=== PATIENT | male | born 1965 | race Caucasian/White ===

== ENCOUNTER 2019-04-10 16:07 | Inpatient (IN) | payer MEDICAID, SELFPAY ==
[2019-04-10 16:13] VITALS: BP 131/90; PULSE 108; RESP 16; TEMP 36.6; O2SAT 98; BMI 27.8
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
[2019-04-10 17:17] LABS: Basophils % 0.4 %; Eosinophils # 0.1 10^3/uL (0.0-0.8); Eosinophils % 0.7 %; Hematocrit 40.2 % (42.0-52.0); Hemoglobin 13.6 g/dL (11.7-16.6); Lymphocytes # 1.4 10^3/uL (0.8-4.8); Lymphocytes % 13.7 %; Mean Corpuscular HGB Conc 33.8 g/dL (30.0-36.0); Mean Corpuscular Hemoglobin 29.4 pg (28.0-34.0); Mean Platelet Volume 11.4 fL (7.4-10.4); Monocytes # 0.7 10^3/uL (0.2-0.9); Monocytes % 6.8 %; Neutrophils % 78.2 %; Nucleated Red Blood Cells % 0 %; Platelet Count 144 10^3/cmm (130-400); Red Blood Count 4.62 10^6/uL (4.1-5.3); Red Cell Distribution Width 13.3 % (12.1-15.1); White Blood Count 10.2 10^3/uL (4.0-10.0)
[2019-04-10 17:40] LABS: Alanine Aminotransferase 37 U/L (0-41); Albumin Level 4.3 g/dL (3.5-5.2); Alkaline Phosphatase 89 IU/L (40-130); Aspartate Amino Transferase 31 U/L (0-40); Blood Urea Nitrogen 13 mg/dL (6-20); Calcium 9.9 mg/dL (8.5-10.5); Carbon Dioxide 23 mmol/L (22-29); Chloride 100 mmol/L (98-107); Globulin 3.3 g/dL (1.3-4.6); Glomerular Filtration Rate 57.7 mL/min (90-130); Glucose 93 mg/dL (65-115); Sodium 136 mmol/L (136-145); Thyroid Stimulating Hormone 1.29 uIU/mL (0.27-4.20); Total Bilirubin 0.8 mg/dL (0.15-1.2); Total Protein 7.6 g/dL (6.6-8.7)
--- NOTE | 2019-04-10 17:43 | PC.PHAR ---
PT STATES HES BEEN OUT OF HIS MEDS BUT HE WAS TAKING VALIUM 5MG,NORCO 7.5/325MG,OXYCODONE 10MG. DR SON OFFICE STATES THEY LAST WROTE RX FOR NORCO 11/16/2018-OXYCODONE 10MG ON 12/06/2018.
[2019-04-10 17:46] LABS: Acetaminophen < 5.0 ug/mL (10-30); Alcohol Level < 10 mg/dL (0-10); Salicylate < 0.3 mg/dL (3-10)
[2019-04-10 17:58] LABS: Add Urine Microscopic? YES; Bilirubin Urine Neg (NEGATIVE); Blood Urine 3+ (Negative); Glucose Urine UA Norm (Normal); Ketones Urine Negative (Negative); Leukocyte Esterase Urine Negative (Negative); Nitrate Urine Negative (Negative); Protein Urine Neg (Negative); Specific Gravity, Urine 1.015 (1.005-1.030); Urine Appearance Clear (CLEAR); Urine Color Yellow (Yellow); Urobilinogen Urine 1 mg/dL (Negative); pH Urine 6 (5-7)
[2019-04-10 18:07] LABS: RBC Urine 40-50 /hpf (0-2); Squamous Epithelial Cell Urine 0-4 (0-5)
[2019-04-10 18:08] LABS: Add Urine Culture? Yes; Bacteria Urine 1+; Hyaline Casts Urine 0-4; Mucus Urine TRACE; Sperm Urine 1+
[2019-04-10 18:13] LABS: Barbiturates Screen Urine Negative (Negative); Benzodiazepines Screen Urine Negative (Negative); Cocaine Screen Urine Negative (Negative); Opiate Screen Urine Negative (Negative); PCP Screen Urine Negative (Negative); THC Screen Urine Positive (Negative)
[2019-04-10 18:15] LABS: Amphetamines Screen Urine Positive (Negative)
[2019-04-10 22:19] VITALS: PULSE 86; O2SAT 94
[2019-04-10 23:32] VITALS: RESP 18
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
[2019-04-11 06:00] VITALS: RESP 15
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
[2019-04-11 14:00] VITALS: BP 96/66; PULSE 88; RESP 20; O2SAT 98
--- NOTE | 2019-04-11 20:30 | PC.NURSE ---
Pt. sister brought $8.00 and gave to patient to use in soda machine.
[2019-04-11 22:00] VITALS: BP 114/80; PULSE 81; RESP 18; TEMP 36.6; O2SAT 99
[2019-04-12 06:00] VITALS: RESP 16
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
[2019-04-12 13:00] VITALS: BP 115/74; PULSE 84; RESP 18; TEMP 36.9; O2SAT 98
[2019-04-12] MEDS: ARIPiprazole 10 mg Tablet PO (16:26)
[2019-04-12 20:30] VITALS: BP 111/73; PULSE 84; RESP 17; TEMP 36.7; O2SAT 99
[2019-04-13 06:00] VITALS: BP 108/79; PULSE 64; RESP 18; TEMP 36.6; O2SAT 100
[2019-04-13] MEDS: ARIPiprazole 10 mg Tablet PO (09:45)
[2019-04-13 14:00] VITALS: BP 109/73; PULSE 81; RESP 18; TEMP 36.6; O2SAT 100
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
[2019-04-13 16:51] VITALS: BP 109/73; PULSE 81; RESP 18; TEMP 36.6; O2SAT 100
== END 2019-04-13 16:59 | disposition home or self-care (01) | DRG 885 ==
LOC: ER 17:01 → NP 20:24
PROVIDERS: Admitting Provider Psychiatry & Neurology Psychiatry; Emergency Provider Family Medicine; Family Provider Family Medicine; Visit Provider Psychiatry & Neurology Psychiatry
DX: F23 Brief psychotic disorder (principal); R45.851 Suicidal ideations; F17.210 Nicotine dependence, cigarettes, uncomplicated
CPT/HCPCS: 12345; 36415; 80053; 80306; 80307; 81001; 84443; 85025; 87086; 99284

== ENCOUNTER 2019-04-10 16:07 | Emergency (ER) | payer MEDICAID, SELFPAY | END 2019-04-10 22:22 | disposition admitted as inpatient to this hospital (09) | LOC: ER 05-07 16:49 | PROVIDERS: Emergency Provider Family Medicine; Family Provider Family Medicine | DX: F19.959 Other psychoactive substance use, unspecified with psychoactive substance-induced psychotic disorder, unspecified (principal); F23 Brief psychotic disorder; F15.10 Other stimulant abuse, uncomplicated; F12.10 Cannabis abuse, uncomplicated; F60.2 Antisocial personality disorder; F17.200 Nicotine dependence, unspecified, uncomplicated | CPT/HCPCS: 36415; 80053; 80306; 80307; 81001; 84443; 85025; 87086; 96372; 99284; 99285 ==

== ENCOUNTER → 2019-05-07 12:02 | Outpatient (BNVA) | payer MEDICAID, SELFPAY | PROVIDERS: Family Provider Family Medicine; Visit Provider Podiatrist Foot & Ankle Surgery | DX: M79.671 Pain in right foot (principal) | CPT/HCPCS: 73630 ==

== ENCOUNTER 2019-08-05 18:02 | Emergency (ER) | payer MEDICAID, SELFPAY ==
[2019-08-05 18:03] VITALS: BMI 26.6
[2019-08-05 18:08] VITALS: BP 133/92; PULSE 70; RESP 18; TEMP 36.4; O2SAT 97
--- NOTE | 2019-08-05 19:01 | PC.NURSE ---
patient left AMA but did not sign AMA form
--- NOTE | 2019-08-05 19:02 | PC.NURSE ---
informed dr. berry of patient leaving A
--- NOTE | 2019-08-05 20:25 | ED_ITS ---
HPI - Headache General: Chief Complaint: Headache Stated Complaint: HEADACHE Time Seen by Provider: 08/05/19 18:04 History of Present Illness: HPI Narrative: 53-year-old male presents with a headache for the last 3 to 4 days. He is localizing his headache to the left parietal and frontal regions. He says it hurts around his eye as well. He says his vision was blurry yesterday but not today. He is light sensitive. He took ibuprofen which seemed to help yesterday, but not as much today. He denies any fever. He says that he vomited yesterday. He denies any rash. Associated symptoms: Reports nausea and vomiting; Deny chest pain, confusion, fever(s) or rash Review of Systems Const: Denies: fever(s) or chills Eyes: Reports: blurry vision ENMT: Denies: swelling of lips/tongue, bleeding gums, epistaxis, post nasal drip or sinus pain Card: Denies: chest pain, palpitations or irregular heart rhythm Resp: Denies: dyspnea, productive cough, non-productive cough or wheezing GI: Reports: nausea and vomiting; Denies: abdominal pain : Denies: difficulty urinating, dysuria or hematuria Musc: Reports: neck pain; Denies: back pain Skin/Breast: Denies: rash, pruritus or erythema Neuro: Reports: headache(s) and dizziness; Denies: confusion or seizure-like activity Psych: Denies: anxiety PFSH ED PFSH: Family History (Updated 05/07/19 @ 12:17 by Maria Teresa Mejia LPN) Other Diabetes Denies family history of Cancer Social History (Updated 05/07/19 @ 12:18 by Maria Teresa Mejia LPN) Smoking and tobacco status: current every day smoker Alcohol intake: never Household members: other Details: Lives in his car, staying with a girl right now Current occupational status: unemployed Physical Exam Const: GENERAL APPEARANCE: well developed ORIENTATION/CONSCIOUSNESS: Yes oriented to person, Yes oriented to place and Yes oriented to time HENMT: COMMON NORMALS: normocephalic, external ears normal and Normal external nose present HEAD & SCALP: normocephalic; no scalp tenderness FACE & SINUS: normal facial exam NOSE: Normal external nose present and No nasal discharge present EXTERNAL EAR: Yes external ears normal MOUTH: tongue normal Eye: COMMON NORMALS: Equal, round and reactive pupils present, EOMs intact bilaterally and conjunctivae normal EYELID: eyelids normal CONJUNCTIVA: Yes conjunctivae normal PUPIL: Yes Equal, round and reactive pupils present Neck/C-Spine: COMMON NORMALS: full ROM GENERAL: No tracheal deviation CERVICAL SPINE: Yes normal cervical lordosis and No Cervical spine tenderness Chest: COMMONS NORMALS: normal inspection of the chest CHEST: No tenderness Resp: COMMON NORMALS: clear to auscultation bilaterally EFFORT & INSPECTION: No tachypneic, No respiratory distress, No retractions, No uses accessory muscles and No tracheal deviation AUSCULTATION: clear to auscultation bilaterally, no rhonchi, no wheezes and lung sounds not diminished Cardio: COMMON NORMALS: regular rate and regular rhythm RATE: regular rate RHYTHM: regular rhythm HEART SOUNDS: no murmurs PERIPHERAL PULSES: radial pulses present GI: INSPECTION: No abdominal distension AUSCULTATION: No Hyperactive bowel sounds present and No Hypoactive bowel sounds present PALPATION: No Guarding due to palpation present (GI) and No Rigid due to palpation PERCUSSION: no dullness to percussion and no tympanic to percussion : COMMON NORMALS: Yes no CVA tenderness BLADDER/KIDNEY EXAM: Yes no CVA tenderness Back/Pelvis: COMMON NORMALS: no CVA tenderness Neuro: SENSORIUM/ORIENTATION: Yes oriented to person, Yes oriented to place and Yes oriented to time Psych: COMMON NORMALS: mental status grossly normal Skin: COMMON NORMALS: no rashes or lesions noted GENERAL SKIN EXAM: no rashes or lesions noted Course Vital Signs: Vital signs: Vital Signs Temperature 97.5 F L 08/05/19 18:08 Pulse Rate 70 08/05/19 18:08 Respiratory Rate 18 08/05/19 18:08 Blood Pressure 133/92 08/05/19 18:08 Pulse Oximetry 97 08/05/19 18:08 MDM - Headache MDM Narrative: Medical decision making narrative: 53-year-old male without significant history of headaches. He does have a history of polysubstance abuse, but has been off of drugs for quite some time he says. He presents with a left-sided frontotemporal headache. No pain with extraocular movements. No fever. No neck stiffness. Labs and CT had been ordered, as well as a migraine type cocktail. The patient then decided he wanted to leave, and left before the start of his treatment. Discharge Plan Discharge Patient Disposition: Left Against Medical Advice Clinical Impression: Headache Qualifiers: Headache type: unspecified Headache chronicity pattern: acute headache Intractability: intractable Qualified Code(s): R51 - Headache Prescriptions: No Action aripiprazole 10 mg Tablet 10 mg PO DAILY 30 Days Qty: 30 RF: 1 Referrals: Elizabeth De Santiago DO [Primary Care Provider] - Discharge Date/Time: 08/05/19 19:03 Coding Level of Care Code ED Legal Consultant for Chg Fwd Exam Comprehensive
== END 2019-08-05 19:03 | disposition left against medical advice (07) ==
LOC: ER 18:22
PROVIDERS: Emergency Provider Emergency Medicine; PCP Family Medicine
DX: R51 Headache (principal); Z53.21 Procedure and treatment not carried out due to patient leaving prior to being seen by health care provider; F17.210 Nicotine dependence, cigarettes, uncomplicated
CPT/HCPCS: 12345; 99281

== ENCOUNTER 2019-08-12 23:25 | Emergency (ER) | payer MEDICAID, SELFPAY ==
[2019-08-12 23:37] VITALS: BP 118/83; RESP 18; TEMP 36.8; O2SAT 98; BMI 25.8
[2019-08-13 00:24] LABS: Basophils # 0.1 10^3/uL (0.0-0.1); Basophils % 1.1 %; Eosinophils # 0.3 10^3/uL (0.0-0.8); Eosinophils % 4.9 %; Hematocrit 41.5 % (42.0-52.0); Lymphocytes # 1.8 10^3/uL (0.8-4.8); Lymphocytes % 32.1 %; Mean Corpuscular HGB Conc 33.7 g/dL (30.0-36.0); Mean Corpuscular Hemoglobin 30.9 pg (28.0-34.0); Mean Corpuscular Volume 91.6 fL (80-94); Mean Platelet Volume 12.3 fL (7.4-10.4); Monocytes # 0.5 10^3/uL (0.2-0.9); Monocytes % 8.4 %; Neutrophils # 2.9 10^3/uL (1.8-7.7); Neutrophils % 53.3 %; Nucleated Red Blood Cells % 0 %; Platelet Count 175 10^3/cmm (130-400); Red Blood Count 4.53 10^6/uL (4.1-5.3); Red Cell Distribution Width 13.7 % (12.1-15.1); White Blood Count 5.5 10^3/uL (4.0-10.0)
[2019-08-13 00:44] LABS: Alanine Aminotransferase 34 U/L (0-41); Albumin Level 4.2 g/dL (3.5-5.2); Alkaline Phosphatase 71 IU/L (40-130); Anion Gap 15.4 (5-19); Aspartate Amino Transferase 31 U/L (0-40); Blood Urea Nitrogen 14 mg/dL (6-20); Calcium 9.2 mg/dL (8.5-10.5); Carbon Dioxide 24 mmol/L (22-29); Chloride 104 mmol/L (98-107); Globulin 3.4 g/dL (1.3-4.6); Glomerular Filtration Rate 69.8 mL/min (90-130); Glucose 155 mg/dL (65-115); Osmolality Calculated 289 mOsm/kg (285-295); Potassium 3.4 mmol/L (3.5-5.1); Sodium 140 mmol/L (136-145); Total Bilirubin 0.4 mg/dL (0.15-1.2); Total Protein 7.6 g/dL (6.6-8.7)
[2019-08-13 00:56] LABS: Acetaminophen < 5.0 ug/mL (10-30); Alcohol Level < 10 mg/dL (0-10); Salicylate < 0.3 mg/dL (3-10)
--- NOTE | 2019-08-13 00:57 | ED_ITS ---
Documented by User: Brent Workman DO 08/13/19 18:40 HPI - Psych General: Chief Complaint: Psychiatric Symptoms Stated Complaint: mhe Time Seen by Provider: 08/12/19 23:41 History of Present Illness: MD complaint: suicidal ideation Onset (ago): hour(s) Duration: constant History of same: Yes Relieving factors: none Exacerbating factors: drug use Context: recent drug abuse Associated psychiatric symptoms: depression, suicidal ideation and homicidal ideation Associated symptoms: Deny auditory hallucinations or visual hallucinations Review of Systems Const: Denies: fever(s) or chills Eyes: Denies: change in vision ENMT: Denies: odynophagia or swelling of lips/tongue Card: Denies: chest pain, palpitations or swelling of feet/ankles Resp: Denies: dyspnea, productive cough, non-productive cough or wheezing GI: Denies: abdominal pain, nausea or vomiting : Denies: difficulty urinating or hematuria Musc: Reports: neck pain; Denies: back pain, joint redness or joint warmth Skin/Breast: Denies: pruritus or erythema Neuro: Reports: headache(s); Denies: dizziness or vertigo Psych: Denies: visual hallucinations or auditory hallucinations PFSH ED PFSH: Family History Other Diabetes Denies family history of Cancer Social History Smoking and tobacco status: current every day smoker Alcohol intake: never Household members: other Details: Lives in his car, staying with a girl right now Current occupational status: unemployed Physical Exam Const: GENERAL APPEARANCE: well developed ORIENTATION/CONSCIOUSNESS: Yes oriented to person, Yes oriented to place and Yes oriented to time HENMT: COMMON NORMALS: normocephalic, external ears normal and Normal external nose present HEAD & SCALP: normocephalic; no scalp tenderness FACE & SINUS: normal facial exam NOSE: Normal external nose present and No nasal discharge present EXTERNAL EAR: Yes external ears normal MOUTH: tongue normal Eye: COMMON NORMALS: Equal, round and reactive pupils present, EOMs intact bilaterally and conjunctivae normal EYELID: eyelids normal CONJUNCTIVA: Yes conjunctivae normal PUPIL: Yes Equal, round and reactive pupils present Neck/C-Spine: GENERAL: No tracheal deviation CERVICAL SPINE: Yes normal cervical lordosis and No Cervical spine tenderness Chest: COMMONS NORMALS: normal inspection of the chest CHEST: No tenderness Resp: COMMON NORMALS: clear to auscultation bilaterally EFFORT & INSPECTION: No tachypneic, No respiratory distress, No retractions, No uses accessory muscles and No tracheal deviation AUSCULTATION: clear to auscultati on bilaterally, no rhonchi, no wheezes and lung sounds not diminished Cardio: COMMON NORMALS: regular rate and regular rhythm RATE: regular rate RHYTHM: regular rhythm HEART SOUNDS: no murmurs PERIPHERAL PULSES: radial pulses present GI: INSPECTION: No abdominal distension AUSCULTATION: No Hyperactive bowel sounds present and No Hypoactive bowel sounds present PALPATION: No Guarding due to palpation present (GI) and No Rigid due to palpation PERCUSSION: no dullness to percussion and no tympanic to percussion Neuro: SENSORIUM/ORIENTATION: Yes oriented to person, Yes oriented to place and Yes oriented to time Psych: COMMON NORMALS: speech normal ATTITUDE: Yes calm SPEECH: Yes normal speech THOUGHT PROCESS: disorganized THOUGHT CONTENT: Yes Suicidality present, Yes Homicidality present and Yes Phobia(s) present ATTENTION/CONCENTRATION: Yes attention grossly intact MEMORY/COGNITION: Yes memory grossly intact INSIGHT: Limited insight present (Psych) JUDGEMENT: Limited judgement present (Psych) Skin: COMMON NORMALS: no rashes or lesions noted GENERAL SKIN EXAM: no rashes or lesions noted MDM - Psych MDM Narrative: Medical decision making narrative: 54-year-old male with a history of psychiatric problems and substance abuse. He presents after making threats to multiple people including 2 police officers. He then threatened to harm himself he has had prior attempts. He is afraid that his sister, who he claims is taken all of his medicine, is out to get him, changing his medical records, gang stalking him . He is medically stable. We are awaiting to see if we have a bed at our facility. Police officers have written an affidavit, although the patient states he is willing to come in. Spoke with psychiatry. There are no male beds available at our facility. Were going to attempt to call other facilities to find this patient in bed. Again he remains willing to come in. 27 facilities have been called. Information is been faxed to 2. He remains medically stable. He is resting comfortably, and has been quite cooperative. He will be checked out to Dr. Mcknight at shift change. Lab Data: Labs: Lab Results 08/13/19 08/13/19 08/13/19 Range/Units 00:20 00:20 00:20 WBC 5.5 (4.0-10.0) 10^3/ uL RBC 4.53 (4.1-5.3) 10^6/u L Hgb 14.0 (11.7-16.6) g/dL Hct 41.5 L (42.0-52.0) % MCV 91.6 (80-94) fL MCH 30.9 (28.0-34.0) pg MCHC 33.7 (30.0-36.0) g/dL RDW 13.7 (12.1-15.1) % Plt Count 175 (130-400) 10^3/c mm MPV 12.3 H (7.4-10.4) fL Neut % (Auto) 53.3 % Lymph % (Auto) 32.1 % [place] % (Auto) 8.4 % Eos % (Auto) 4.9 % Baso % (Auto) 1.1 % Neut # (Auto) 2.9 (1.8-7.7) 10^3/u L Lymph # (Auto) 1.8 (0.8-4.8) 10^3/u L [place] # (Auto) 0.5 (0.2-0.9) 10^3/u L Eos # (Auto) 0.3 (0.0-0.8) 10^3/u L Baso # (Auto) 0.1 (0.0-0.1) 10^3/u L Nucleated RBC % (a uto) 0 % Nucleated RBCs # 0.0 /100WBC Sodium 140 (136-145) mmol/L Potassium 3.4 L (3.5-5.1) mmol/L Chloride 104 (98-107) mmol/L Carbon Dioxide 24 (22-29) mmol/L Anion Gap 15.4 (5-19) BUN 14 (6-20) mg/dL Creatinine 1.1 (0.7-1.2) mg/dL GFR Calculation 69.8 L (90-130) mL/min Glucose 155 H (65-115) mg/dL Calculated Osmolal ity 289 (285-295) mOsm/k g Calcium 9.2 (8.5-10.5) mg/dL Total Bilirubin 0.4 (0.15-1.2) mg/dL AST 31 (0-40) U/L ALT 34 (0-41) U/L Alkaline Phosphata se 71 (40-130) IU/L Total Protein 7.6 (6.6-8.7) g/dL Albumin 4.2 (3.5-5.2) g/dL Globulin 3.4 (1.3-4.6) g/dL TSH (0.27-4.20) uIU/ mL Urine Color (Yellow) Urine Appearance (CLEAR) Urine pH (5-7) Ur Specific Gravit y (1.005-1.030) Urine Protein (Negative) Urine Glucose (UA) (Normal) Urine Ketones (Negative) Urine Blood (Negative) Urine Nitrate (Negative) Urine Bilirubin (NEGATIVE) Urine Urobilinogen (Negative) mg/dL Ur Leukocyte Raiza ase (Negative) Salicylates < 0.3 L (3-10) mg/dL Urine Opiates Scre en (Negative) ng/mL Acetaminophen < 5.0 L (10-30) ug/mL Ur Barbiturates Sc reen (Negative) ng/mL Ur Phencyclidine S crn (Negative) ng/mL Ur Amphetamines Sc reen (Negative) ng/mL U Benzodiazepines Scrn (Negative) ng/mL [place] < 0.1 L (0.6-1.2) mmol/L Urine Cocaine Scre en (Negative) ng/mL U Marijuana (THC) Screen (Negative) ng/mL Ethyl Alcohol < 10 (0-10) mg/dL 08/13/19 08/13/19 08/13/19 Range/Units 00:20 02:01 02:01 WBC (4.0-10.0) 10^3/ uL RBC (4.1-5.3) 10^6/u L Hgb (11.7-16.6) g/dL Hct (42.0-52.0) % MCV (80-94) fL MCH (28.0-34.0) pg MCHC (30.0-36.0) g/dL RDW (12.1-15.1) % Plt Count (130-400) 10^3/c mm MPV (7.4-10.4) fL Neut % (Auto) % Lymph % (Auto) % [place] % (Auto) % Eos % (Auto) % Baso % (Auto) % Neut # (Auto) (1.8-7.7) 10^3/u L Lymph # (Auto) (0.8-4.8) 10^3/u L [place] # (Auto) (0.2-0.9) 10^3/u L Eos # (Auto) (0.0-0.8) 10^3/u L Baso # (Auto) (0.0-0.1) 10^3/u L Nucleated RBC % (a uto) % Nucleated RBCs # /100WBC Sodium (136-145) mmol/L Potassium (3.5-5.1) mmol/L Chloride (98-107) mmol/L Carbon Dioxide (22-29) mmol/L Anion Gap (5-19) BUN (6-20) mg/dL Creatinine (0.7-1.2) mg/dL GFR Calculation (90-130) mL/min Glucose (65-115) mg/dL Calculated Osmolal ity (285-295) mOsm/k g Calcium (8.5-10.5) mg/dL Total Bilirubin (0.15-1.2) mg/dL AST (0-40) U/L ALT (0-41) U/L Alkaline Phosphata se (40-130) IU/L Total Protein (6.6-8.7) g/dL Albumin (3.5-5.2) g/dL Globulin (1.3-4.6) g/dL TSH 1.39 (0.27-4.20) uIU/ mL Urine Color Yellow (Yellow) Urine Appearance Clear (CLEAR) Urine pH 5 (5-7) Ur Specific Gravit y 1.020 (1.005-1.030) Urine Protein Neg (Negative) Urine Glucose (UA) Norm (Normal) Urine Ketones Negative (Negative) Urine Blood Neg (Negative) Urine Nitrate Negative (Negative) Urine Bilirubin Neg (NEGATIVE) Urine Urobilinogen 4 H (Negative) mg/dL Ur Leukocyte Raiza ase Negative (Negative) Salicylates (3-10) mg/dL Urine Opiates Scre en Negative (Negative) ng/mL Acetaminophen (10-30) ug/mL Ur Barbiturates Sc reen Negative (Negative) ng/mL Ur Phencyclidine S crn Negative (Negative) ng/mL Ur Amphetamines Sc reen Positive H (Negative) ng/mL U Benzodiazepines Scrn Negative (Negative) ng/mL [place] (0.6-1.2) mmol/L Urine Cocaine Scre en Negative (Negative) ng/mL U Marijuana (THC) Screen Positive H (Negative) ng/mL Ethyl Alcohol (0-10) mg/dL Discharge Plan Discharge Patient Disposition: Home, Self-Care Clinical Impression: Drug-induced psychotic disorder, Methamphetamine abuse, Cannabis abuse, Antisocial personality disorder Condition: Stable Prescriptions: No Action Unable to Assess RF: 0 Discharge Orders: Discharge Order (Routine); Ordered 08/13/19 Ordered By: Dilshad Mcknight Referrals: Elizabeth De Santiago DO [Primary Care Provider] - Discharge Diet: Usual diet Discharge Activity: Resume usual activity Activity Restrictions/Additional Instructions: Recommend you follow-up with behavioral health through your primary care provider. Also recommend stopping using marijuana and methamphetamine. Discharge Date/Time: 08/13/19 10:24 Sign Out Sign Out Data: Patient Sign Out occurred on 08/13/19 at 06:27. Patient's care was discussed, and care was transferred from to Dilshad Mcknight DO. Coding Level of Care Code ED Tank Driver for Chg Fwd Exam Comprehensive Documented by User: Dilshad Mcknight DO 08/13/19 14:40 HPI - Psych General: Chief Complaint: Psychiatric Symptoms Stated Complaint: mhe Time Seen by Provider: 08/12/19 23:41 History of Present Illness: HPI Narrative: Initially seen by Dr. Workman he had been here for quite some time he been trying to make arrangements for transfer. When he had come in PD had brought him in and cussed the he had made several comments about wanting to be killed and filled out affidavits. Because he has a family member is here at [facility] did not want to be admitted here. We found 27 different places to call none of them would take him on transfer. When I went into see the patient initially he would not even discuss anything with me he simply ignored me he then became angry when he said we would admit him he demanded to be transferred he refused to comply with her wishes to change into paper scrubs staff overnight had been trying to do that but he had been confrontational they are afraid he would lead to harm to staff or himself so they let him stay on his own close for the time being and continue to monitor him one-on-one. He is threatening to physically harm and attack our staff if he is admitted to this facility. complaint: suicidal ideation Onset (ago): hour(s) Duration: constant History of same: Yes Relieving factors: none Exacerbating factors: none Context: recent alcohol abuse and recent drug abuse Associated psychiatric symptoms: suicidal ideation and homicidal ideation Associated symptoms: Reports homicidal ideation and suicidal ideation Treatments prior to arrival: placed on mental health hold If self harm: admits thoughts of self harm Review of Systems General: Reports: Other (Patient refuses to answer any questions) Psych: Reports: suicidal ideation and homicidal ideation [facility] ED PFSH: Family History Other Diabetes Denies family history of Cancer Social History Smoking and tobacco status: current every day smoker Alcohol intake: never Household members: other Details: Lives in his car, staying with a girl right now Current occupational status: unemployed Physical Exam Narrative: EXAM NARRATIVE: Patient would not allow physical exam. He made threatening remarks and was physically confrontational to the point where it was not safe for myself to examine the patient. MDM - Psych MDM Narrative: Medical decision making narrative: Care assumed from Dr. Workman at change of shift. Patient refuses to talk to me. He makes threatening comments threatens to harm the staff if he is not transferred. See Dr. Workman's note we have called multiple facilities no one is willing to take him on transfer. He did tell the police he wanted them to kill him he is not made any specific suicidal ideation here other than just the threats of violence against our staff if he is admitted. He refuses to be admitted here because he is a family member who works here and he is convinced that they are accessing his chart and changing. Contacted Dr. Kendall who Dr. Workman talk to the last night he was on-call for tele-psych at Dr. robbin is on now Dr. Kendall and agreed probably better if this patient was seen in person. Dr. siegel will be coming down shortly to see the patient in the emergency room. If the patient is not agreeable to admission here without threatening staff anticipating discharge to [facility] for suicide watch Dr. siegel has seen the patient. I completed the 96-hour paperwork based on the [place] [employer] officer statements. Dr. siegel has seen and evaluated him he does not feel he is a suicide risk he is going to release the 96-hour hold recommends that we discharge. He does not feel that psychiatric admission will help this patient. See his consultation. Lab Data: Labs: Lab Results 08/13/19 08/13/19 08/13/19 Range/Units 00:20 00:20 00:20 WBC 5.5 (4.0-10.0) 10^3/ uL RBC 4.53 (4.1-5.3) 10^6/u L Hgb 14.0 (11.7-16.6) g/dL Hct 41.5 L (42.0-52.0) % MCV 91.6 (80-94) fL MCH 30.9 (28.0-34.0) pg MCHC 33.7 (30.0-36.0) g/dL RDW 13.7 (12.1-15.1) % Plt Count 175 (130-400) 10^3/c mm MPV 12.3 H (7.4-10.4) fL Neut % (Auto) 53.3 % Lymph % (Auto) 32.1 % [place] % (Auto) 8.4 % Eos % (Auto) 4.9 % Baso % (Auto) 1.1 % Neut # (Auto) 2.9 (1.8-7.7) 10^3/u L Lymph # (Auto) 1.8 (0.8-4.8) 10^3/u L [place] # (Auto) 0.5 (0.2-0.9) 10^3/u L Eos # (Auto) 0.3 (0.0-0.8) 10^3/u L Baso # (Auto) 0.1 (0.0-0.1) 10^3/u L Nucleated RBC % (a uto) 0 % Nucleated RBCs # 0.0 /100WBC Sodium 140 (136-145) mmol/L Potassium 3.4 L (3.5-5.1) mmol/L Chloride 104 (98-107) mmol/L Carbon Dioxide 24 (22-29) mmol/L Anion Gap 15.4 (5-19) BUN 14 (6-20) mg/dL Creatinine 1.1 (0.7-1.2) mg/dL GFR Calculation 69.8 L (90-130) mL/min Glucose 155 H (65-115) mg/dL Calculated Osmolal ity 289 (285-295) mOsm/k g Calcium 9.2 (8.5-10.5) mg/dL Total Bilirubin 0.4 (0.15-1.2) mg/dL AST 31 (0-40) U/L ALT 34 (0-41) U/L Alkaline Phosphata se 71 (40-130) IU/L Total Protein 7.6 (6.6-8.7) g/dL Albumin 4.2 (3.5-5.2) g/dL Globulin 3.4 (1.3-4.6) g/dL TSH (0.27-4.20) uIU/ mL Urine Color (Yellow) Urine Appearance (CLEAR) Urine pH (5-7) Ur Specific Gravit y (1.005-1.030) Urine Protein (Negative) Urine Glucose (UA) (Normal) Urine Ketones (Negative) Urine Blood (Negative) Urine Nitrate (Negative) Urine Bilirubin (NEGATIVE) Urine Urobilinogen (Negative) mg/dL Ur Leukocyte Raiza ase (Negative) Salicylates < 0.3 L (3-10) mg/dL Urine Opiates Scre en (Negative) ng/mL Acetaminophen < 5.0 L (10-30) ug/mL Ur Barbiturates Sc reen (Negative) ng/mL Ur Phencyclidine S crn (Negative) ng/mL Ur Amphetamines Sc reen (Negative) ng/mL U Benzodiazepines Scrn (Negative) ng/mL [place] < 0.1 L (0.6-1.2) mmol/L Urine Cocaine Scre en (Negative) ng/mL U Marijuana (THC) Screen (Negative) ng/mL Ethyl Alcohol < 10 (0-10) mg/dL 08/13/19 08/13/19 08/13/19 Range/Units 00:20 02:01 02:01 WBC (4.0-10.0) 10^3/ uL RBC (4.1-5.3) 10^6/u L Hgb (11.7-16.6) g/dL Hct (42.0-52.0) % MCV (80-94) fL MCH (28.0-34.0) pg MCHC (30.0-36.0) g/dL RDW (12.1-15.1) % Plt Count (130-400) 10^3/c mm MPV (7.4-10.4) fL Neut % (Auto) % Lymph % (Auto) % [place] % (Auto) % Eos % (Auto) % Baso % (Auto) % Neut # (Auto) (1.8-7.7) 10^3/u L Lymph # (Auto) (0.8-4.8) 10^3/u L [place] # (Auto) (0.2-0.9) 10^3/u L Eos # (Auto) (0.0-0.8) 10^3/u L Baso # (Auto) (0.0-0.1) 10^3/u L Nucleated RBC % (a uto) % Nucleated RBCs # /100WBC Sodium (136-145) mmol/L Potassium (3.5-5.1) mmol/L Chloride (98-107) mmol/L Carbon Dioxide (22-29) mmol/L Anion Gap (5-19) BUN (6-20) mg/dL Creatinine (0.7-1.2) mg/dL GFR Calculation (90-130) mL/min Glucose (65-115) mg/dL Calculated Osmolal ity (285-295) mOsm/k g Calcium (8.5-10.5) mg/dL Total Bilirubin (0.15-1.2) mg/dL AST (0-40) U/L ALT (0-41) U/L Alkaline Phosphata se (40-130) IU/L Total Protein (6.6-8.7) g/dL Albumin (3.5-5.2) g/dL Globulin (1.3-4.6) g/dL TSH 1.39 (0.27-4.20) uIU/ mL Urine Color Yellow (Yellow) Urine Appearance Clear (CLEAR) Urine pH 5 (5-7) Ur Specific Gravit y 1.020 (1.005-1.030) Urine Protein Neg (Negative) Urine Glucose (UA) Norm (Normal) Urine Ketones Negative (Negative) Urine Blood Neg (Negative) Urine Nitrate Negative (Negative) Urine Bilirubin Neg (NEGATIVE) Urine Urobilinogen 4 H (Negative) mg/dL Ur Leukocyte Raiza ase Negative (Negative) Salicylates (3-10) mg/dL Urine Opiates Scre en Negative (Negative) ng/mL Acetaminophen (10-30) ug/mL Ur Barbiturates Sc reen Negative (Negative) ng/mL Ur Phencyclidine S crn Negative (Negative) ng/mL Ur Amphetamines Sc reen Positive H (Negative) ng/mL U Benzodiazepines Scrn Negative (Negative) ng/mL [place] (0.6-1.2) mmol/L Urine Cocaine Scre en Negative (Negative) ng/mL U Marijuana (THC) Screen Positive H (Negative) ng/mL Ethyl Alcohol (0-10) mg/dL Discharge Plan Discharge Patient Disposition: Home, Self-Care Clinical Impression: Drug-induced psychotic disorder, Methamphetamine abuse, Cannabis abuse, Antisocial personality disorder Condition: Stable Prescriptions: No Action Unable to Assess RF: 0 Discharge Orders: Discharge Order (Routine); Ordered 08/13/19 Ordered By: Dilshad Mcknight Referrals: Elizabeth De Santiago DO [Primary Care Provider] - Discharge Diet: Usual diet Discharge Activity: Resume usual activity Activity Restrictions/Additional Instructions: Recommend you follow-up with behavioral health through your primary care provider. Also recommend stopping using marijuana and methamphetamine. Discharge Date/Time: 08/13/19 10:24 Sign Out Sign Out Data: Patient Sign Out occurred on 08/13/19 at 06:27. Patient's care was discussed, and care was transferred from to Dilshad Mcknight DO. Coding Level of Care Code ED Tank Driver for Chg Fwd Exam Comprehensive
--- NOTE | 2019-08-13 01:11 | PC.NURSE ---
Patient resting in bed. Doctor in room. 1:1 sitter with patient.
[2019-08-13 01:12] LABS: Lithium < 0.1 mmol/L (0.6-1.2)
[2019-08-13 02:13] LABS: Add Urine Microscopic? NO
[2019-08-13 02:21] LABS: Bilirubin Urine Neg (NEGATIVE); Blood Urine Neg (Negative); Glucose Urine UA Norm (Normal); Ketones Urine Negative (Negative); Leukocyte Esterase Urine Negative (Negative); Nitrate Urine Negative (Negative); Protein Urine Neg (Negative); Urine Appearance Clear (CLEAR); Urine Color Yellow (Yellow); Urobilinogen Urine 4 mg/dL (Negative); pH Urine 5 (5-7)
[2019-08-13 02:30] LABS: Amphetamines Screen Urine Positive (Negative); Barbiturates Screen Urine Negative (Negative); Benzodiazepines Screen Urine Negative (Negative); Cocaine Screen Urine Negative (Negative); Opiate Screen Urine Negative (Negative); PCP Screen Urine Negative (Negative); THC Screen Urine Positive (Negative)
--- NOTE | 2019-08-13 02:35 | PC.NURSE ---
Patient sleeping. 1:1 Sitter at bedside.
--- NOTE | 2019-08-13 02:50 | ECG_ITS ---
[facility] Test Date: 2019-08-13 Pat Name: Mt Hawkins Department: Room: Gender: Male Ship'S Engineer: Bobo : 1965 Requested By: Brent Georges Order Number: [id number] Jeremiah MD: Nell Mcgregor M.D. Measurements Intervals [place] Rate: 59 P: 63 RI: 142 QRS: 56 QRSD: 101 T: 56 QT: 420 QTc: 418 Interpretive Statements SINUS BRADYCARDIA Compared to ECG 06/08/2018 15:08:20 Sinus rhythm no longer present Myocardial infarct finding no longer present Electronically Signed On 08-13-2019 21:39:18 CDT by Nell Mcgregor M.D. [email or web address]
--- NOTE | 2019-08-13 02:58 | PC.NURSE ---
Patient sleeping. 1:1 sitter at bedside.
[2019-08-13 03:16] VITALS: BP 117/72; PULSE 55; RESP 18; O2SAT 98
[2019-08-13 03:44] LABS: Thyroid Stimulating Hormone 1.39 uIU/mL (0.27-4.20)
[2019-08-13 06:24] VITALS: BP 125/80; PULSE 56; RESP 16; O2SAT 98
--- NOTE | 2019-08-13 06:28 | PC.NURSE ---
Pt. resting with eyes closed. Breathing even, non labored. 1:1 sitter at bedside. Awaiting acceptance to psychiatric facility
[2019-08-13 06:30] VITALS: BP 127/89; PULSE 55; RESP 18; O2SAT 98
[2019-08-13 07:00] VITALS: BP 134/85; PULSE 57; RESP 18; O2SAT 98
--- NOTE | 2019-08-13 07:00 | PC.NURSE ---
patient resting in bed. breathing evenly, eyes closed. patient hooked up to bedside monitor. 1:1 sitter at bedside. waiting to hear back for transfer to psych facility. room cleared of all hazardous materials. patient belongings placed at nurses station. will continue to monitor.
[2019-08-13 07:36] VITALS: BP 137/63; PULSE 59; RESP 17; O2SAT 100
--- NOTE | 2019-08-13 07:43 | PC.NURSE ---
attempted to put patient in paper scrubs. patient refusing to change out of clothes. cussing and yelling at nurses I am not changing clothes until i get transferred to another facility. charge nurse notified.
--- NOTE | 2019-08-13 08:21 | PC.NURSE ---
per ED physician, patient is to wear paper scrubs. nurse and charge nurse attempted to change patent into scrubs. patient becoming increasingly aggravated. jumped put of bed and pulling up sleeves. stating that he is not changing clothes until he is transferred to another facility. security called to bedside for patient and staff safety. will continue to monitor. 1:1 sitter at bedside.
--- NOTE | 2019-08-13 09:50 | PC.NURSE ---
psychiatrist at bedside talking with patient. 1:1 sitter at bedside. patient refusing to wear pulse ox and bp cuff at this time. will continue to monitor.
[2019-08-13] MEDS: ibuprofen 200 mg Tablet PO (10:03)
--- NOTE | 2019-08-13 10:19 | PC.NURSE ---
patient refused to let nurse take DC vital signs. patient unhappy about dc and not being transferred to [facility]. shared services and outsourcing manager, Vilma calling rides to help assist with ride to half-way in [place].
== END 2019-08-13 10:24 | disposition home or self-care (01) ==
PROVIDERS: Emergency Medicine; Emergency Provider Family Medicine; PCP Family Medicine
DX: F15.259 Other stimulant dependence with stimulant-induced psychotic disorder, unspecified (principal); F12.10 Cannabis abuse, uncomplicated; F60.2 Antisocial personality disorder; F17.210 Nicotine dependence, cigarettes, uncomplicated
CPT/HCPCS: 12345; 80053; 80178; 80306; 80307; 81003; 84443; 85025; 93005; 99284

== ENCOUNTER 2019-08-18 01:39 | Emergency (ER) | payer MEDICAID, SELFPAY | END 2019-08-18 03:48 | disposition admitted as inpatient to this hospital (09) | LOC: ER 08-20 17:01 | PROVIDERS: Emergency Provider Emergency Medicine; PCP Family Medicine | DX: R45.851 Suicidal ideations (principal); F17.210 Nicotine dependence, cigarettes, uncomplicated | CPT/HCPCS: 36415; 80053; 80306; 80307; 81001; 81003; 85025; 99284; 99285 ==

== ENCOUNTER 2019-08-18 01:39 | Inpatient (IN) | payer MEDICAID, SELFPAY ==
[2019-08-18 01:42] VITALS: BP 121/77; PULSE 83; RESP 16; TEMP 36.3; O2SAT 98; BMI 26.6
[2019-08-18 02:10] LABS: Basophils # 0.1 10^3/uL (0.0-0.1); Basophils % 0.9 %; Eosinophils # 0.2 10^3/uL (0.0-0.8); Eosinophils % 1.9 %; Hematocrit 41.1 % (42.0-52.0); Hemoglobin 13.5 g/dL (11.7-16.6); Lymphocytes # 2.5 10^3/uL (0.8-4.8); Mean Corpuscular HGB Conc 32.8 g/dL (30.0-36.0); Mean Corpuscular Hemoglobin 30.5 pg (28.0-34.0); Mean Corpuscular Volume 92.8 fL (80-94); Mean Platelet Volume 12.2 fL (7.4-10.4); Monocytes # 0.6 10^3/uL (0.2-0.9); Monocytes % 6.1 %; Neutrophils # 6.68 10^3/uL (1.8-7.7); Neutrophils % 65.8 %; Nucleated Red Blood Cells % 0 %; Platelet Count 169 10^3/cmm (130-400); Red Blood Count 4.43 10^6/uL (4.1-5.3); Red Cell Distribution Width 13.6 % (12.1-15.1); White Blood Count 10.1 10^3/uL (4.0-10.0)
[2019-08-18 02:11] LABS: Add Urine Microscopic? YES; Bilirubin Urine Neg (NEGATIVE); Blood Urine 2+ (Negative); Glucose Urine UA Norm (Normal); Ketones Urine Negative (Negative); Leukocyte Esterase Urine Negative (Negative); Nitrate Urine Negative (Negative); Protein Urine Neg (Negative); Urine Appearance Clear (CLEAR); Urine Color Yellow (Yellow); Urobilinogen Urine Norm (Negative); pH Urine 6 (5-7)
[2019-08-18 02:12] LABS: Bacteria Urine TRACE; WBC Urine 0-4 /hpf (0-5)
[2019-08-18 02:13] LABS: Amphetamines Screen Urine Negative (Negative); Barbiturates Screen Urine Negative (Negative); Benzodiazepines Screen Urine Negative (Negative); Cocaine Screen Urine Negative (Negative); Opiate Screen Urine Negative (Negative); PCP Screen Urine Negative (Negative); THC Screen Urine Positive (Negative)
--- NOTE | 2019-08-18 02:15 | W.ED.PSYCH ---
HPI - Psych General: Chief Complaint: Psychiatric Symptoms Stated Complaint: MHE Time Seen by Provider: 08/18/19 01:50 History of Present Illness: HPI Narrative: 54-year-old male well-known to the emergency department. He presents this morning down and depressed. He denies any auditory or visual hallucinations, but states he feels lost . He says he has not taken amphetamines recently. He is seeking treatment in the neuropsychiatric unit, as he has been having suicidal thoughts. MD complaint: suicidal ideation and feels depressed Onset (ago): day(s) Duration: constant History of same: Yes Relieving factors: none Exacerbating factors: none Associated psychiatric symptoms: depression and suicidal ideation Associated symptoms: Deny auditory hallucinations or visual hallucinations Treatments prior to arrival: none If self harm: admits thoughts of self harm Review of Systems Const: Denies: fever(s) or chills Eyes: Denies: change in vision or blurry vision ENMT: Denies: swelling of lips/tongue, post nasal drip or sinus pain Card: Denies: chest pain, palpitations or irregular heart rhythm Resp: Denies: dyspnea, productive cough, non-productive cough or wheezing GI: Denies: abdominal pain, nausea or vomiting : Denies: difficulty urinating or hematuria Musc: Reports: neck pain; Denies: back pain Skin/Breast: Denies: rash or pruritus Neuro: Reports: headache(s) (Chronic); Denies: dizziness, vertigo, confusion or seizure-like activity Psych: Denies: anxiety, visual hallucinations or auditory hallucinations PFSH ED PFSH: Family History Other Diabetes Denies family history of Cancer Social History Smoking and tobacco status: current every day smoker Alcohol intake: never Household members: other Details: Lives in his car, staying with a girl right now Current occupational status: unemployed Physical Exam Const: GENERAL APPEARANCE: disheveled and ill appearing ORIENTATION/CONSCIOUSNESS: Yes oriented to person, Yes oriented to place and Yes oriented to time HENMT: COMMON NORMALS: normocephalic, external ears normal and Normal external nose present HEAD & SCALP: normocephalic FACE & SINUS: normal facial exam NOSE: Normal external nose present and No nasal discharge present EXTERNAL EAR: Yes external ears normal Eye: COMMON NORMALS: Equal, round and reactive pupils present, EOMs intact bilaterally and conjunctivae normal EYELID: eyelids normal CONJUNCTIVA: Yes conjunctivae normal PUPIL: Yes Equal, round and reactive pupils present Neck/C-Spine: GENERAL: No tracheal deviation Chest: COMMONS NORMALS: normal inspection of the chest CHEST: No tenderness Resp: COMMON NORMALS: clear to auscultation bilaterally EFFORT & INSPECTION: No tachypneic, No respiratory distress, No retractions, No uses accessory muscles and No tracheal deviation AUSCULTATION: clear to auscultation bilaterally, no rhonchi, no wheezes and lung sounds not diminished Cardio: COMMON NORMALS: regular rate and regular rhythm RATE: regular rate RHYTHM: regular rhythm HEART SOUNDS: no murmurs PERIPHERAL PULSES: radial pulses present GI: INSPECTION: No abdominal distension AUSCULTATION: No Hyperactive bowel sounds present and No Hypoactive bowel sounds present PALPATION: No Guarding due to palpation present (GI) and No Rigid due to palpation PERCUSSION: no dullness to percussion and no tympanic to percussion Neuro: SENSORIUM/ORIENTATION: Yes oriented to person, Yes oriented to place and Yes oriented to time Psych: COMMON NORMALS: speech normal ATTITUDE: Yes Withdrawn affect present ACTIVITY/MOTOR BEHAVIOR: Yes appropriate eye contact and Yes psychomotor slowing SPEECH: Yes normal speech MOOD & AFFECT: Yes depressed mood THOUGHT CONTENT: Yes Suicidality present ATTENTION/CONCENTRATION: Yes attention grossly intact MEMORY/COGNITION: Yes memory grossly intact INSIGHT: Fair insight present (Psych) JUDGEMENT: Fair judgement present (Psych) Skin: COMMON NORMALS: no rashes or lesions noted GENERAL SKIN EXAM: no rashes or lesions noted MDM - Psych MDM Narrative: Medical decision making narrative: 54-year-old male presents with suicidal ideation. He is not intoxicated. His labs are benign. He is medically stable. He wants to be evaluated in the NPU. Lab Data: Labs: Lab Results 08/18/19 08/18/19 08/18/19 Range/Units 01:53 01:53 01:56 WBC 10.1 H (4.0-10.0) 10^3/ uL RBC 4.43 (4.1-5.3) 10^6/u L Hgb 13.5 (11.7-16.6) g/dL Hct 41.1 L (42.0-52.0) % MCV 92.8 (80-94) fL MCH 30.5 (28.0-34.0) pg MCHC 32.8 (30.0-36.0) g/dL RDW 13.6 (12.1-15.1) % Plt Count 169 (130-400) 10^3/c mm MPV 12.2 H (7.4-10.4) fL Neut % (Auto) 65.8 % Lymph % (Auto) 25.0 % [place] % (Auto) 6.1 % Eos % (Auto) 1.9 % Baso % (Auto) 0.9 % Neut # (Auto) 6.68 (1.8-7.7) 10^3/u L Lymph # (Auto) 2.5 (0.8-4.8) 10^3/u L [place] # (Auto) 0.6 (0.2-0.9) 10^3/u L Eos # (Auto) 0.2 (0.0-0.8) 10^3/u L Baso # (Auto) 0.1 (0.0-0.1) 10^3/u L Nucleated RBC % (a uto) 0 % Nucleated RBCs # 0.0 /100WBC Sodium (136-145) mmol/L Potassium (3.5-5.1) mmol/L Chloride (98-107) mmol/L Carbon Dioxide (22-29) mmol/L Anion Gap (5-19) BUN (6-20) mg/dL Creatinine (0.7-1.2) mg/dL GFR Calculation (90-130) mL/min Glucose (65-115) mg/dL Calculated Osmolal ity (285-295) mOsm/k g Calcium (8.5-10.5) mg/dL Total Bilirubin (0.15-1.2) mg/dL AST (0-40) U/L ALT (0-41) U/L Alkaline Phosphata se (40-130) IU/L Total Protein (6.6-8.7) g/dL Albumin (3.5-5.2) g/dL Globulin (1.3-4.6) g/dL Urine Color Yellow (Yellow) Urine Appearance Clear (CLEAR) Urine pH 6 (5-7) Ur Specific Gravit y 1.020 (1.005-1.030) Urine Protein Neg (Negative) Urine Glucose (UA) Norm (Normal) Urine Ketones Negative (Negative) Urine Blood 2+ H (Negative) Urine Nitrate Negative (Negative) Urine Bilirubin Neg (NEGATIVE) Urine Urobilinogen Norm (Negative) mg/dL Ur Leukocyte Raiza ase Negative (Negative) Urine RBC 5-10 H (0-2) /hpf Urine WBC 0-4 H (0-5) /hpf Ur Squamous Epith Cells None (0-5) Amorphous Sediment Not Reportable Urine Bacteria Trace (NONE) Salicylates (3-10) mg/dL Urine Opiates Scre en Negative (Negative) ng/mL Acetaminophen (10-30) ug/mL Ur Barbiturates Sc reen Negative (Negative) ng/mL Ur Phencyclidine S crn Negative (Negative) ng/mL Ur Amphetamines Sc reen Negative (Negative) ng/mL U Benzodiazepines Scrn Negative (Negative) ng/mL Urine Cocaine Scre en Negative (Negative) ng/mL U Marijuana (THC) Screen Positive H (Negative) ng/mL Ethyl Alcohol (0-10) mg/dL 08/18/19 Range/Units 01:56 WBC (4.0-10.0) 10^3/ uL RBC (4.1-5.3) 10^6/u L Hgb (11.7-16.6) g/dL Hct (42.0-52.0) % MCV (80-94) fL MCH (28.0-34.0) pg MCHC (30.0-36.0) g/dL RDW (12.1-15.1) % Plt Count (130-400) 10^3/c mm MPV (7.4-10.4) fL Neut % (Auto) % Lymph % (Auto) % [place] % (Auto) % Eos % (Auto) % Baso % (Auto) % Neut # (Auto) (1.8-7.7) 10^3/u L Lymph # (Auto) (0.8-4.8) 10^3/u L [place] # (Auto) (0.2-0.9) 10^3/u L Eos # (Auto) (0.0-0.8) 10^3/u L Baso # (Auto) (0.0-0.1) 10^3/u L Nucleated RBC % (a uto) % Nucleated RBCs # /100WBC Sodium 138 (136-145) mmol/L Potassium 4.2 (3.5-5.1) mmol/L Chloride 104 (98-107) mmol/L Carbon Dioxide 26 (22-29) mmol/L Anion Gap 12.2 (5-19) BUN 16 (6-20) mg/dL Creatinine 1.1 (0.7-1.2) mg/dL GFR Calculation 69.8 L (90-130) mL/min Glucose 128 H (65-115) mg/dL Calculated Osmolal ity 284 L (285-295) mOsm/k g Calcium 9.8 (8.5-10.5) mg/dL Total Bilirubin 0.2 (0.15-1.2) mg/dL AST 26 (0-40) U/L ALT 35 (0-41) U/L Alkaline Phosphata se 74 (40-130) IU/L Total Protein 7.4 (6.6-8.7) g/dL Albumin 4.6 (3.5-5.2) g/dL Globulin 2.8 (1.3-4.6) g/dL Urine Color (Yellow) Urine Appearance (CLEAR) Urine pH (5-7) Ur Specific Gravit y (1.005-1.030) Urine Protein (Negative) Urine Glucose (UA) (Normal) Urine Ketones (Negative) Urine Blood (Negative) Urine Nitrate (Negative) Urine Bilirubin (NEGATIVE) Urine Urobilinogen (Negative) mg/dL Ur Leukocyte Raiza ase (Negative) Urine RBC (0-2) /hpf Urine WBC (0-5) /hpf Ur Squamous Epith Cells (0-5) Amorphous Sediment Urine Bacteria (NONE) Salicylates 0.5 L (3-10) mg/dL Urine Opiates Scre en (Negative) ng/mL Acetaminophen < 5.0 L (10-30) ug/mL Ur Barbiturates Sc reen (Negative) ng/mL Ur Phencyclidine S crn (Negative) ng/mL Ur Amphetamines Sc reen (Negative) ng/mL U Benzodiazepines Scrn (Negative) ng/mL Urine Cocaine Scre en (Negative) ng/mL U Marijuana (THC) Screen (Negative) ng/mL Ethyl Alcohol < 10 (0-10) mg/dL Discharge Plan Discharge Patient Disposition: Admitted As Inpatient Admit Provider: Wily Brown Clinical Impression: Suicidal ideation Condition: Stable Referrals: Elizabeth De Santiago DO [Primary Care Provider] - Discharge Date/Time: 08/18/19 03:48 Coding Level of Care Code ED Food Service Assistant for Chg Fwd Exam Comprehensive
[2019-08-18 02:24] LABS: Alanine Aminotransferase 35 U/L (0-41); Albumin Level 4.6 g/dL (3.5-5.2); Alkaline Phosphatase 74 IU/L (40-130); Anion Gap 12.2 (5-19); Aspartate Amino Transferase 26 U/L (0-40); Blood Urea Nitrogen 16 mg/dL (6-20); Calcium 9.8 mg/dL (8.5-10.5); Carbon Dioxide 26 mmol/L (22-29); Chloride 104 mmol/L (98-107); Globulin 2.8 g/dL (1.3-4.6); Glomerular Filtration Rate 69.8 mL/min (90-130); Glucose 128 mg/dL (65-115); Osmolality Calculated 284 mOsm/kg (285-295); Potassium 4.2 mmol/L (3.5-5.1); Salicylate 0.5 mg/dL (3-10); Sodium 138 mmol/L (136-145); Total Bilirubin 0.2 mg/dL (0.15-1.2); Total Protein 7.4 g/dL (6.6-8.7)
[2019-08-18 02:26] LABS: Acetaminophen < 5.0 ug/mL (10-30); Alcohol Level < 10 mg/dL (0-10)
[2019-08-18 04:21] VITALS: BP 121/77; PULSE 83; RESP 16; TEMP 36.4; O2SAT 97
[2019-08-18 06:00] VITALS: BP 121/77; PULSE 83; RESP 16; TEMP 36.4; O2SAT 97
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
[2019-08-18 11:48] VITALS: BP 121/77; PULSE 83; RESP 16; TEMP 36.4; O2SAT 97
--- NOTE | 2019-08-18 13:37 | PM.NDC ---
Diagnoses at Discharge Discharge Diagnosis (1) Adjustment disorder with depressed mood: Status: Resolved Reason for Visit Reason for Visit: MHE Brief History: Mt Hawkins is a 54 year old male with a history of polysubstance abuse, clinical depression, and bad behavior. He was previously seen by this physician 5 days ago in the emergency room when he was brought in by police after making a suicidal threat during an arrest. He was never charged. But that time he was quite irritable and also volatile and explosive. He also demonstrated a pattern of generally being threatening to any and all staff. At that time, his urine drug screen was positive for amphetamines. On this presentation, at the time of his entry into the emergency room, he was described by the ER physician as:54-year-old male well-known to the emergency department. He presents this morning down and depressed. He denies any auditory or visual hallucinations, but states he feels lost . He says he has not taken amphetamines recently. He is seeking treatment in the neuropsychiatric unit, as he has been having suicidal thoughts. He presents in a similar manner this morning. He is much more rational and honest in his presentation and seems to have a better grasp of his situation. He says that he is homeless. It is unclear why he was kicked out of the homeless skilled nursing but he said last night he had no place to go. He is really not requesting any treatment and in fact that shortly after the interview starts, he says he should just leave. This was discussed. We discussed the reasonable possibility that he remain here a few days and receiving decent sleep and sustenance while he gets assistance in a solving his homeless problem that would likely reduce any probability that he would return to methamphetamine abuse and again wind up in the hospital. He appreciated the offer and actually was quite surprised. He gave it some thought. He decided it was his in his best interest to be discharged to take care of his affairs outside but would appreciate having his medication restarted. He is taking Abilify 5 mg daily and baclofen 10 mg twice daily. He denied suicidal or homicidal ideation. He expressly stated his intent to remain free of violence and to remain out of [facility] again. He denied the presence of auditory or visual hallucinations. His urine drug screen showed:Laboratory Tests 08/18/19 08/18/19 01:53 01:56 Urine Opiates Screen Negative Ur Barbiturates Screen Negative Ur Phencyclidine Scrn Negative Ur Amphetamines Screen Negative U Benzodiazepines Scrn Negative Urine Cocaine Screen Negative U Marijuana (THC) Screen Positive H Ethyl Alcohol < 10 Hospital Course Discharge Summary Diagnoses: Adjustment disorder with disturbance of mood Assessment: Patient was offered ongoing stay in the hospital as part of crisis intervention. Treatment plan: Patient was admitted to the adult psychiatric unit and entered into the full array of individual and group therapies as part of that unit protocol. It was decided to restart his medications of Abilify 5 mg daily and baclofen 10 mg 3 times daily as needed. Patient decided that he needed to leave and take care of his affairs. He was permitted to be discharged in regular status. Involuntary Hold Information 96 Hour Hold: 96 Hour Involuntary Admission: No 96 Hour Hold Ending Date: 04/16/19 96 Hour Hold Ending Time: 20:28 Mental Status Exam MSE Comments: Mental Status Exam: Appearance: hygiene is fair; no gross neurological deficits., gait is unremarkable; AIMS=0 Speech: Speech is of normal rate and rhythm and easily understood. Thought processes: Thought processes are abstract. Judgment is adequate for safety. Associations: intact Psychotic processes: There is no indication of guarding or paranoia. There is no attention to the internal stimuli. Auditory and visual hallucinations are denied. Judgment: Insight is fair. Problem solving skills are adequate for safety. Orientation: The patient is oriented to person, place time and situation. Memory: no deficits noted in immediate, intermediate, or remote spheres. Attention: The patient is alert and interpersonally engaged. Language: Verbalizations are coherent. Fund of knowledge: Fund of knowledge is adequate. Affect/Mood: Affect is consistent with a depressed mood. He denied suicidal ideation Affective range appropriate. Psychosis: perception unimpaired except through cognitive distortion; reality testing intact. Discharge Data Data Completed and Pending: Labs from last 24 hours 08/18/19 08/18/19 08/18/19 01:56 01:56 01:53 WBC 10.1 H RBC 4.43 Hgb 13.5 Hct 41.1 L MCV 92.8 MCH 30.5 MCHC 32.8 RDW 13.6 Plt Count 169 MPV 12.2 H Neut % (Auto) 65.8 Lymph % (Auto) 25.0 [place] % (Auto) 6.1 Eos % (Auto) 1.9 Baso % (Auto) 0.9 Neut # (Auto) 6.68 Lymph # (Auto) 2.5 [place] # (Auto) 0.6 Eos # (Auto) 0.2 Baso # (Auto) 0.1 Nucleated RBC % (a uto) 0 Nucleated RBCs # 0.0 Sodium 138 Potassium 4.2 Chloride 104 Carbon Dioxide 26 Anion Gap 12.2 BUN 16 Creatinine 1.1 GFR Calculation 69.8 L Glucose 128 H Calculated Osmolal ity 284 L Calcium 9.8 Total Bilirubin 0.2 AST 26 ALT 35 Alkaline Phosphata se 74 Total Protein 7.4 Albumin 4.6 Globulin 2.8 Urine Color Urine Appearance Urine pH Ur Specific Gravit y Urine Protein Urine Glucose (UA) Urine Ketones Urine Blood Urine Nitrate Urine Bilirubin Urine Urobilinogen Ur Leukocyte Raiza ase Urine RBC Urine WBC Ur Squamous Epith Cells Amorphous Sediment Urine Bacteria Salicylates 0.5 L Urine Opiates Scre en Negative Acetaminophen < 5.0 L Ur Barbiturates Sc reen Negative Ur Phencyclidine S crn Negative Ur Amphetamines Sc reen Negative U Benzodiazepines Scrn Negative Urine Cocaine Scre en Negative U Marijuana (THC) Screen Positive H Ethyl Alcohol < 10 08/18/19 01:53 WBC RBC Hgb Hct MCV MCH MCHC RDW Plt Count MPV Neut % (Auto) Lymph % (Auto) [place] % (Auto) Eos % (Auto) Baso % (Auto) Neut # (Auto) Lymph # (Auto) [place] # (Auto) Eos # (Auto) Baso # (Auto) Nucleated RBC % (a uto) Nucleated RBCs # Sodium Potassium Chloride Carbon Dioxide Anion Gap BUN Creatinine GFR Calculation Glucose Calculated Osmolal ity Calcium Total Bilirubin AST ALT Alkaline Phosphata se Total Protein Albumin Globulin Urine Color Yellow Urine Appearance Clear Urine pH 6 Ur Specific Gravit y 1.020 Urine Protein Neg Urine Glucose (UA) Norm Urine Ketones Negative Urine Blood 2+ H Urine Nitrate Negative Urine Bilirubin Neg Urine Urobilinogen Norm Ur Leukocyte Raiza ase Negative Urine RBC 5-10 H Urine WBC 0-4 H Ur Squamous Epith Cells None Amorphous Sediment Not Reportable Urine Bacteria Trace Salicylates Urine Opiates Scre en Acetaminophen Ur Barbiturates Sc reen Ur Phencyclidine S crn Ur Amphetamines Sc reen U Benzodiazepines Scrn Urine Cocaine Scre en U Marijuana (THC) Screen Ethyl Alcohol Vitals: Last Vital Signs Temp 97.6 F 08/18/19 11:48 Pulse 83 08/18/19 11:48 Resp 16 08/18/19 11:48 BP 121/77 08/18/19 11:48 Pulse Ox 97 08/18/19 11:48 Discharge Plan Discharge Patient Disposition: Home, Self-Care Condition: Stable Prescriptions: New trazodone 50 mg Tablet 50 mg PO BEDTIME PRN (Reason: Sleep) Qty: 15 RF: 3 baclofen 10 mg Tablet 10 mg PO TID Qty: 90 RF: 3 aripiprazole 10 mg Tablet 5 mg PO DAILY Qty: 30 RF: 3 Referrals: Elizabeth De Santiago DO [Primary Care Provider] - Discharge Date/Time: 08/18/19 12:15 Discharge Attestations NPU Time Spent in Discharge Care*: less than 30 min Coding Level of Care Code Acute Elevator Constructor for Chg Fwd Diagnoses Adjustment disorder with depressed mood F43.21
== END 2019-08-18 12:15 | disposition home or self-care (01) | DRG 881 ==
LOC: ER 03:27 → NP 03:28
PROVIDERS: Emergency Medicine; Admitting Provider Psychiatry & Neurology Psychiatry; PCP Family Medicine; Visit Provider Psychiatry & Neurology Psychiatry
DX: F43.21 Adjustment disorder with depressed mood (principal); F17.210 Nicotine dependence, cigarettes, uncomplicated
CPT/HCPCS: 12345; 36415; 80053; 80306; 80307; 81001; 81003; 85025; 99284

== ENCOUNTER 2019-09-03 11:35 | Emergency (ER) | payer MEDICAID, SELFPAY ==
[2019-09-03 11:42] VITALS: PULSE 100; RESP 16; TEMP 37; O2SAT 93; BMI 28.8
--- NOTE | 2019-09-03 12:15 | W.ED.SKABFB ---
HPI - Skin/Abscess/Foreign Bdy General: Chief complaint: Skin/Abscess/Foreign Body Stated complaint: RIGHT FOOT PAIN Time Seen by Provider: 09/03/19 11:48 History of Present Illness: HPI narrative: Patient is a 54-year-old male comes to the ED with a plantar wart to right foot. Patient says this is a chronic issue and would like to get plantar wart shaved down while here in the ED. No other complaints stated. Associated symptoms: Deny chills, fever(s), nausea or vomiting Review of Systems Const: Denies: fever(s), chills or fatigue Eyes: Denies: change in vision or eye discomfort ENMT: Denies: throat pain, odynophagia, nasal discharge or nasal congestion Card: Denies: chest pain, palpitations, edema, swelling of feet/ankles, dyspnea on exertion or orthopnea Resp: Denies: dyspnea, productive cough or non-productive cough GI: Denies: abdominal pain, nausea, vomiting, diarrhea, constipation or hematochezia : Denies: flank pain, difficulty urinating, dysuria or hematuria Musc: Denies: neck pain, back pain or extremity swelling Skin/Breast: Reports: new lesions (Plantar wart on right foot.); Denies: rash Neuro: Denies: headache(s), numbness in extremities or weakness in extremities PFSH ED PFSH: Family History Other Diabetes Denies family history of Cancer Social History Smoking and tobacco status: current every day smoker Alcohol intake: never Household members: other Details: Lives in his car, staying with a girl right now Current occupational status: unemployed Physical Exam Const: COMMON NORMALS: no acute distress, patient oriented x3 and alert GENERAL APPEARANCE: cooperative and comfortable HENMT: COMMON NORMALS: normocephalic HEAD & SCALP: normocephalic MOUTH: Normal oral and palatal mucosa present THROAT: posterior oropharynx normal and uvula midline Neck/C-Spine: COMMON NORMALS: supple GENERAL: Yes normal visual inspection Resp: COMMON NORMALS: normal respiratory effort, No retractions, No use of accessory muscles and clear to auscultation bilaterally AUSCULTATION: clear to auscultation bilaterally Cardio: COMMON NORMALS: regular rate, regular rhythm, S1 normal heart sound present, S2 normal heart sound present, No gallops present (Cardio), No clicks present (Cardio), No murmurs present (Cardio) and Peripheral pulses 2+ throughout RATE: regular rate RHYTHM: regular rhythm HEART SOUNDS: S1 normal heart sound present and S2 normal heart sound present PERIPHERAL PULSES: Peripheral pulses 2+ throughout GI: COMMON NORMALS: Normal to inspection, nondistended, normoactive bowel sounds present, Soft to palpation, non-tender and no masses PALPATION: Yes Soft to palpation : COMMON NORMALS: Yes no CVA tenderness BLADDER/KIDNEY EXAM: Yes no CVA tenderness Back/Pelvis: COMMON NORMALS: no CVA tenderness Extremity: RIGHT LOWER EXTREMITY: Yes foot & digits (Patient has plantar warts on lateral side of right foot.) Neuro: COMMON NORMALS: patient oriented x3 and moves all extremities SENSORIUM/ORIENTATION: Yes alert Skin: NARRATIVE SKIN EXAM: Patient is plantar wart of right foot. Approximately 0.5 cm size. Skin over wart is thick and hard. Course Vital Signs: Vital signs: Vital Signs Temperature 98.6 F 09/03/19 11:42 Pulse Rate 100 09/03/19 11:42 Respiratory Rate 16 09/03/19 11:42 Pulse Oximetry 93 09/03/19 11:42 MDM - Skin/Abscess/Foreign Bdy MDM Narrative: Medical decision making narrative: Patient is a 54-year-old male comes to the ED with a plantar wart on right foot. He was requesting for wart to be shaved down to make it more comfortable for him. I took an 11 blade and shaved off some of the thickness of the wart. Patient was happy and pain with ambulation had improved. Patient was discharged and given return to ED precautions. Patient understood and agreed with plan. Discharge Plan Discharge Patient Disposition: Home Clinical Impression: Plantar wart of right foot Condition: Stable Prescriptions: No Action trazodone 50 mg Tablet 50 mg PO BEDTIME PRN (Reason: Sleep) Qty: 15 RF: 3 baclofen 10 mg Tablet 10 mg PO TID Qty: 90 RF: 3 aripiprazole 10 mg Tablet 5 mg PO DAILY Qty: 30 RF: 3 diclofenac sodium 75 mg tablet,delayed release (DR/EC) 75 mg PO Q12H PRN (Reason: pain) Qty: 20 RF: 0 Discharge Orders: Discharge Order (Routine); Ordered 09/03/19 Ordered By: José Manuel Posey Referrals: Elizabeth De Santiago, [Primary Care Provider] - Discharge Diet: Regular Discharge Activity: Resume usual activity Patient Instructions: Molly Cortez (ED) Activity Restrictions/Additional Instructions: Follow-up with medical provider as directed. Take [id number] ibuprofen or Tylenol for pain. Return to the ER or your medical provider if condition worsens. Please read and understand discharge instructions. If any questions, please ask. Discharge Date/Time: 09/03/19 12:21 Coding Level of Care Code ED Centerless Grinding Machine Adjuster for Chg Fwd Exam Comprehensive
== END 2019-09-03 12:21 | disposition home or self-care (01) ==
PROVIDERS: Emergency Provider Physician Assistant; PCP Family Medicine
DX: B07.0 Plantar wart (principal); F17.210 Nicotine dependence, cigarettes, uncomplicated
CPT/HCPCS: 12345; 99281; 99282

== ENCOUNTER 2019-09-04 05:18 | Emergency (ER) | payer MEDICAID, SELFPAY ==
[2019-09-04 05:33] VITALS: BP 128/71; PULSE 83; RESP 20; TEMP 36.7; O2SAT 95; BMI 27.3
--- NOTE | 2019-09-04 05:49 | ED_ITS ---
HPI - Extremity Problem General: Chief complaint: Extremity Problem,Nontraumatic Stated complaint: feet injury Time Seen by Provider: 09/04/19 05:42 History of Present Illness: HPI Narrative: 54-year-old male comes in complaining of sore feet. He has a large blister on the base of his left foot and a smaller one on his right foot. He also has multiple plantar warts including a large cluster at the sole of the foot underlying the second and third metatarsal heads. Reviewing the chart he has been in to see Dr. Lipscomb for these before. MD Complaint: extremity pain Onset (ago): month(s) Pain Consistency: intermittent Location: left, right, lower extremity and other (Soles of the feet) Quality: aching Radiation: none Relieving factors: nothing Exacerbating factors: weight bearing Associated symptoms: Reports no associated symptoms; Deny chest pain, fever(s) or rash Review of Systems Const: Denies: fever(s), chills, body aches, change in appetite, fatigue or malaise Card: Denies: chest pain, edema, dyspnea on exertion or orthopnea Resp: Denies: dyspnea, productive cough or non-productive cough GI: Denies: abdominal pain, nausea, vomiting, hematemesis, coffee ground emesis, diarrhea, constipation, bloating, hematochezia or melena : Denies: flank pain, dysuria, urinary frequency or urinary urgency Skin/Breast: Denies: rash or pruritus PFSH ED PFSH: Family History Other Diabetes Denies family history of Cancer Social History Smoking and tobacco status: current every day smoker Alcohol intake: never Household members: other Details: Lives in his car, staying with a girl right now Current occupational status: unemployed Physical Exam Const: COMMON NORMALS: average body habitus, patient oriented x3 and alert GENERAL APPEARANCE: well developed ORIENTATION/CONSCIOUSNESS: Yes awake, Yes oriented to person and Yes oriented to place OTHER: Patient behaving erratically. Since patient multiple times before is difficult to assess whether or not this is his typical mental health behavior behavior he does not appear to be under the influence of methamphetamine at this time. Eye: COMMON NORMALS: Equal, round and reactive pupils present, EOMs intact bilaterally, conjunctivae normal and no scleral icterus CONJUNCTIVA: Yes conjunctivae normal PUPIL: Yes Equal, round and reactive pupils present Resp: COMMON NORMALS: normal respiratory effort, No retractions, No use of accessory muscles and clear to auscultation bilaterally AUSCULTATION: clear to auscultation bilaterally Cardio: COMMON NORMALS: regular rate and regular rhythm RATE: regular rate RHYTHM: regular rhythm HEART SOUNDS: no murmurs GI: COMMON NORMALS: Normal to inspection, nondistended, normoactive bowel sounds present, Soft to palpation and No hepatosplenomegaly present PALPATION: Yes Soft to palpation and Yes No hepatosplenomegaly present : COMMON NORMALS: Yes no CVA tenderness BLADDER/KIDNEY EXAM: Yes no CVA tenderness Back/Pelvis: COMMON NORMALS: no CVA tenderness LUMBAR SPINE/LOWER BACK: Yes normal to inspection Extremity: COMMON NORMALS: no clubbing, cyanosis or edema, no calf tenderness and no pedal edema Neuro: COMMON NORMALS: patient oriented x3 SENSORIUM/ORIENTATION: Yes alert, Yes oriented to person and Yes oriented to place Skin: NARRATIVE SKIN EXAM: Soles of the feet patient has large plantar warts particularly at the base of the left foot underlying the second and third metatarsal heads. He has smaller plantar warts scattered throughout the foot including lateral portion of the right foot at the MP joint. There are several small blisters present as well attempted to open blisters up to drain but patient would not tolerate. He began moving erratically and there was too much wrist myself to further do this so we stopped. Course Vital Signs: Vital signs: Vital Signs Temperature 98.1 F 09/04/19 05:33 Pulse Rate 83 09/04/19 05:33 Respiratory Rate 20 H 09/04/19 05:33 Blood Pressure 128/71 09/04/19 05:33 Pulse Oximetry 95 09/04/19 05:33 MDM - Extremity (Nontraumatic) MDM Narrative: Medical decision making narrative: Patient refusing to allow any treatment. Attempted to drain the blisters by de-julio him but he would not tolerate will refer to podiatry. Discharge Plan Discharge Patient Disposition: Home Clinical Impression: Plantar wart of right foot, Blister of foot, Antisocial personality disorder Condition: Stable Prescriptions: New diclofenac sodium 75 mg tablet,delayed release (DR/EC) 75 mg PO Q12H PRN (Reason: pain) Qty: 20 RF: 0 No Action trazodone 50 mg Tablet 50 mg PO BEDTIME PRN (Reason: Sleep) Qty: 15 RF: 3 baclofen 10 mg Tablet 10 mg PO TID Qty: 90 RF: 3 aripiprazole 10 mg Tablet 5 mg PO DAILY Qty: 30 RF: 3 Discharge Orders: Discharge Order (Routine); Ordered 09/04/19 Ordered By: Dilshad Mcknight Referrals: Phong Lipscomb DPM [Physician] - (Plantar warts, blisters) Discharge Diet: Advance as tolerated Discharge Activity: Resume usual activity Activity Restrictions/Additional Instructions: Case management will call the referral to podiatry. Coding Level of Care Code ED Marketing Traffic Manager for Kaitlynn Wallace
--- NOTE | 2019-09-04 09:39 | PC.SOCIAL ---
Received referral for Podiatry referral from ED. Spoke with Rayna at Podiatry/ Ortho clinic. She will print off information for Pat and Provider to review. They will notify this nurse if unable to schedule appointment.
--- NOTE | 2019-09-12 12:41 | DCPLANNER ---
Patient had an appointment scheduled for 09.07.19 with ortho, patient did not attend appointment.
== END 2019-09-04 06:20 | disposition home or self-care (01) ==
PROVIDERS: Emergency Provider Family Medicine; PCP Family Medicine
DX: B07.0 Plantar wart (principal); S90.829A Blister (nonthermal), unspecified foot, initial encounter; X58.XXXA Exposure to other specified factors, initial encounter; F60.2 Antisocial personality disorder; F17.210 Nicotine dependence, cigarettes, uncomplicated
CPT/HCPCS: 12345; 99281

== ENCOUNTER 2019-09-06 18:57 | Inpatient (IN) | payer MEDICAID, SELFPAY ==
[2019-09-06] VITALS (7 sets, daily range): BP systolic 113–127; BP diastolic 66–78; PULSE 64–70; RESP 16–19; TEMP 36.6–36.7; O2SAT 95–99; BMI 23.6
--- NOTE | 2019-09-06 18:58 | ED_ITS ---
HPI - General Adult General: Stated complaint: SI Time Seen by Provider: 09/06/19 18:58 PFSH ED PFSH: Family History Other Diabetes Denies family history of Cancer Social History Smoking and tobacco status: current every day smoker Alcohol intake: never Household members: other Details: Lives in his car, staying with a girl right now Current occupational status: unemployed Discharge Plan Discharge Prescriptions: No Action trazodone 50 mg Tablet 50 mg PO BEDTIME PRN (Reason: Sleep) Qty: 15 RF: 3 baclofen 10 mg Tablet 10 mg PO TID Qty: 90 RF: 3 aripiprazole 10 mg Tablet 5 mg PO DAILY Qty: 30 RF: 3 diclofenac sodium 75 mg tablet,delayed release (DR/EC) 75 mg PO Q12H PRN (Reason: pain) Qty: 20 RF: 0 Coding Level of Care Code ED Production Support Manager for Kaitlynn Wallace
--- NOTE | 2019-09-06 18:58 | ECG_ITS ---
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 Measurements Intervals [place] Rate: 66 P: 64 [place]: 136 QRS: 48 QRSD: 90 T: 56 QT: 389 QTc: 408 Interpretive Statements SINUS RHYTHM SEPTAL MYOCARDIAL INFARCTION , OF INDETERMINATE AGE [40+ ms Q WAVE IN V1/V2] Compared to ECG 08/13/2019 03:17:39 Myocardial infarct finding now present Sinus bradycardia no longer present Electronically Signed On 09-07-2019 16:01:55 CDT by Arnel Gleason M.D. [email or web address]
--- NOTE | 2019-09-06 19:02 | ED_ITS ---
HPI - Psych General: Chief Complaint: Psychiatric Symptoms Stated Complaint: SI Time Seen by Provider: 09/06/19 18:58 Source: patient and EMS Mode of arrival: EMS Limitations: no limitations History of Present Illness: HPI Narrative: 54-year-old male who states he has had suicidal thoughts over the last 3 to 4 days. Patient is homeless and struggles with substance abuse as well. He denies any worsening or improving factors. He states he has multiple plans at this time. complaint: suicidal ideation Onset (ago): week(s) Duration: constant History of same: Yes Exacerbating factors: none Associated psychiatric symptoms: depression Associated symptoms: Reports depression Treatments prior to arrival: none Review of Systems Const: Denies: fever(s), chills, body aches or change in appetite Eyes: Denies: blurry vision or eye discomfort ENMT: Denies: throat pain or dental pain Card: Denies: chest pain Resp: Denies: dyspnea GI: Denies: abdominal pain, nausea, vomiting or diarrhea : Denies: dysuria Musc: Denies: neck pain or back pain Skin/Breast: Denies: rash Neuro: Denies: headache(s) Psych: Reports: depression Jordan/Lymph: Denies: easy bruising All/Imm: Denies: urticaria PFSH ED PFSH: Family History Other Diabetes Denies family history of Cancer Social History Smoking and tobacco status: current every day smoker Alcohol intake: never Household members: other Details: Lives in his car, staying with a girl right now Current occupational status: unemployed Physical Exam Const: COMMON NORMALS: no acute distress, patient oriented x3 and healthy appearing HENMT: COMMON NORMALS: normocephalic and atraumatic HEAD & SCALP: normocephalic and atraumatic Eye: COMMON NORMALS: Equal, round and reactive pupils present and EOMs intact bilaterally PUPIL: Yes Equal, round and reactive pupils present Neck/C-Spine: COMMON NORMALS: full ROM and supple Chest: COMMONS NORMALS: normal inspection of the chest and normal palpation of entire chest wall Resp: COMMON NORMALS: normal respiratory effort, No retractions, No use of accessory muscles and clear to auscultation bilaterally AUSCULTATION: clear to auscultation bilaterally Cardio: COMMON NORMALS: regular rate, regular rhythm and No murmurs present (Cardio) RATE: regular rate RHYTHM: regular rhythm GI: COMMON NORMALS: Normal to inspection, nondistended, normoactive bowel sounds present, Soft to palpation, non-tender and no masses PALPATION: Yes Soft to palpation Extremity: COMMON NORMALS: normal to inspection and full ROM Neuro: COMMON NORMALS: patient oriented x3, moves all extremities and no focal motor deficits Psych: COMMON NORMALS: mental status grossly normal and cooperative MOOD & AFFECT: Yes depressed mood Skin: COMMON NORMALS: no rashes or lesions noted and no wounds GENERAL SKIN EXAM: no rashes or lesions noted MDM - Psych MDM Narrative: Medical decision making narrative: Patient presents for suicidal ideation and voluntarily wants to be admitted. I spoke to Dr. Kendall and will admit to the psychiatric unit. Lab Data: Labs: Lab Results 09/06/19 09/06/19 Range/Units 19:12 19:12 WBC 5.5 (4.0-10.0) 10^3/ uL RBC 4.26 (4.1-5.3) 10^6/u L Hgb 12.9 (11.7-16.6) g/dL Hct 40.6 L (42.0-52.0) % MCV 95.3 H (80-94) fL MCH 30.3 (28.0-34.0) pg MCHC 31.8 (30.0-36.0) g/dL RDW 13.8 (12.1-15.1) % Plt Count 121 L (130-400) 10^3/c mm MPV 12.1 H (7.4-10.4) fL Neut % (Auto) 51.1 % Lymph % (Auto) 36.2 % [place] % (Auto) 8.0 % Eos % (Auto) 4.0 % Baso % (Auto) 0.7 % Neut # (Auto) 2.79 (1.8-7.7) 10^3/u L Lymph # (Auto) 2.0 (0.8-4.8) 10^3/u L [place] # (Auto) 0.4 (0.2-0.9) 10^3/u L Eos # (Auto) 0.2 (0.0-0.8) 10^3/u L Baso # (Auto) 0.0 (0.0-0.1) 10^3/u L Nucleated RBC % (a uto) 0 % Nucleated RBCs # 0.0 /100WBC Sodium 137 (136-145) mmol/L Potassium 4.4 (3.5-5.1) mmol/L Chloride 105 (98-107) mmol/L Carbon Dioxide 25 (22-29) mmol/L Anion Gap 11.4 (5-19) BUN 15 (6-20) mg/dL Creatinine 1.0 (0.7-1.2) mg/dL GFR Calculation 77.9 L (90-130) mL/min Glucose 98 (65-115) mg/dL Calculated Osmolal ity 280 L (285-295) mOsm/k g Calcium 8.9 (8.5-10.5) mg/dL Total Bilirubin 0.2 (0.15-1.2) mg/dL AST 36 (0-40) U/L ALT 48 H (0-41) U/L Alkaline Phosphata se 73 (40-130) IU/L Total Protein 6.9 (6.6-8.7) g/dL Albumin 4.0 (3.5-5.2) g/dL Globulin 2.9 (1.3-4.6) g/dL TSH 2.38 (0.27-4.20) uIU/ mL Discharge Plan Discharge Patient Disposition: Admitted As Inpatient Clinical Impression: Suicidal ideation Condition: Stable Prescriptions: No Action trazodone 50 mg Tablet 50 mg PO BEDTIME PRN (Reason: Sleep) Qty: 15 RF: 3 baclofen 10 mg Tablet 10 mg PO TID Qty: 90 RF: 3 aripiprazole 10 mg Tablet 5 mg PO DAILY Qty: 30 RF: 3 diclofenac sodium 75 mg tablet,delayed release (DR/EC) 75 mg PO Q12H PRN (Reason: pain) Qty: 20 RF: 0 Referrals: Elizabeth De Santiago DO [Primary Care Provider] - Coding Level of Care Code ED Rn Cardiovascular for g Fwd Exam Comprehensive
[2019-09-06 19:17] LABS: Basophils % 0.7 %; Eosinophils # 0.2 10^3/uL (0.0-0.8); Hematocrit 40.6 % (42.0-52.0); Hemoglobin 12.9 g/dL (11.7-16.6); Lymphocytes % 36.2 %; Mean Corpuscular HGB Conc 31.8 g/dL (30.0-36.0); Mean Corpuscular Hemoglobin 30.3 pg (28.0-34.0); Mean Corpuscular Volume 95.3 fL (80-94); Mean Platelet Volume 12.1 fL (7.4-10.4); Monocytes # 0.4 10^3/uL (0.2-0.9); Neutrophils # 2.79 10^3/uL (1.8-7.7); Neutrophils % 51.1 %; Nucleated Red Blood Cells % 0 %; Platelet Count 121 10^3/cmm (130-400); Red Blood Count 4.26 10^6/uL (4.1-5.3); Red Cell Distribution Width 13.8 % (12.1-15.1); White Blood Count 5.5 10^3/uL (4.0-10.0)
[2019-09-06 19:42] LABS: Alanine Aminotransferase 48 U/L (0-41); Alkaline Phosphatase 73 IU/L (40-130); Anion Gap 11.4 (5-19); Aspartate Amino Transferase 36 U/L (0-40); Blood Urea Nitrogen 15 mg/dL (6-20); Calcium 8.9 mg/dL (8.5-10.5); Carbon Dioxide 25 mmol/L (22-29); Chloride 105 mmol/L (98-107); Globulin 2.9 g/dL (1.3-4.6); Glomerular Filtration Rate 77.9 mL/min (90-130); Glucose 98 mg/dL (65-115); Osmolality Calculated 280 mOsm/kg (285-295); Potassium 4.4 mmol/L (3.5-5.1); Sodium 137 mmol/L (136-145); Thyroid Stimulating Hormone 2.38 uIU/mL (0.27-4.20); Total Bilirubin 0.2 mg/dL (0.15-1.2); Total Protein 6.9 g/dL (6.6-8.7)
[2019-09-06 19:50] LABS: Acetaminophen < 5.0 ug/mL (10-30); Alcohol Level < 10 mg/dL (0-10); Salicylate < 0.3 mg/dL (3-10)
[2019-09-06 21:30] LABS: Amphetamines Screen Urine Positive (Negative); Barbiturates Screen Urine Negative (Negative); Benzodiazepines Screen Urine Negative (Negative); Cocaine Screen Urine Negative (Negative); Opiate Screen Urine Negative (Negative); PCP Screen Urine Negative (Negative); THC Screen Urine Positive (Negative)
[2019-09-06] MEDS: trazodone 50 mg Tablet PO (22:48)
[2019-09-06] MEDS: oxyCODONE 5 mg IR Tab/Cap 10 MG PO (22:48)
--- NOTE | 2019-09-06 22:48 | PC.NURSE ---
PRN TRAZODONE PT REQUESTING SLEEP AID. ADMINISTERED TRAZODONE 50 MG PO. WILL MONITOR FOR MEDICATION EFFECTIVENESS.
[2019-09-07 06:00] VITALS: BP 111/71; PULSE 63; RESP 17; TEMP 36.7; O2SAT 97
[2019-09-07] MEDS: ARIPiprazole 10 mg Tablet 5 MG PO (08:09)
[2019-09-07] MEDS: baclofen 10 mg Tablet PO ×3 (08:09→21:32)
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
[2019-09-07 14:00] VITALS: BP 112/61; PULSE 85; RESP 20; TEMP 36.6; O2SAT 98
--- NOTE | 2019-09-07 14:23 | PC.RESP ---
Smoking Cessation information sent to patient.
[2019-09-07 21:32] VITALS: RESP 15; O2SAT 98
[2019-09-07] MEDS: oxyCODONE 5 mg IR Tab/Cap 10 MG PO (21:32)
[2019-09-07] MEDS: trazodone 50 mg Tablet PO (21:32)
[2019-09-07 21:53] VITALS: BP 114/74; PULSE 59; RESP 20; TEMP 37; O2SAT 99
--- NOTE | 2019-09-07 22:04 | PC.NURSE ---
PRN TRAZODONE PT REQUESTING SLEEP AID. ADMINISTERED TRAZODONE 50 MG PO. WILL MONITOR FOR MEDICATION EFFECTIVENESS.
[2019-09-08 06:00] VITALS: BP 107/75; PULSE 57; RESP 18; TEMP 36.6; O2SAT 99
[2019-09-08] MEDS: ARIPiprazole 10 mg Tablet 5 MG PO (09:16)
[2019-09-08] MEDS: baclofen 10 mg Tablet PO ×3 (09:17→20:43)
--- NOTE | 2019-09-08 12:41 | PM.NPN ---
Subjective NPU Subjective: Interval history: Mt presented today reporting that he is adjusting well to restarting medication and handling the withdrawal currently without major difficulty. He is very hopeful that the [facility] will be able to take him on Tuesday and at this point it is looking good but he can't have verification until Tuesday morning. At this point he is eating well and sleeping okay. He reports he is struggling some with pain but that something he'll have to figure out. He endorsed optimism about his recovery with the inpatient option provided. Mental Status Exam MSE Comments: This is a well-nourished, well-developed, white male, with adequate dress, grooming, and eye contact. No abnormal movements except for psychomotor retardation. Cooperative with exam in mild distress. Speech was decreased rate and volume. Mood described as okay/a little more hopeful; affect congruent. Thought process, organized. Thought content: patient denied any suicidal or homicidal ideation, there were no delusions reported or noted, patient denied any auditory or visual hallucinations. Attention, concentration, and memory appear intact but were not formally tested. He is alert and oriented times three. Insight and judgment are limited, but improving. Impulse control is limited. Vitals/I&O/Wt Last Vital Signs Temp 97.8 F 09/08/19 06:00 Pulse 57 L 09/08/19 06:00 Resp 18 09/08/19 06:00 BP 107/75 09/08/19 06:00 Pulse Ox 99 09/08/19 06:00 Data NPU : 09/06/19 19:12 09/06/19 19:12 A&P Additional A&P Information (1) Suicidal ideation: (2) Adjustment disorder with depressed mood: (3) Antisocial personality disorder: (4) Methamphetamine abuse: (5) Cannabis abuse: (6) Drug-induced psychotic disorder: This is a 54 year old, white male, with antisocial personality disorder, methamphetamine use by history, polysubstance use by history, depressive disorder, unspecified, anxiety disorder, unspecified, rule out post-traumatic stress disorder, who presents with continued difficulty with integration in this society since release from jail and struggling with active addiction, desiring stabilization on his psychiatric medications and referral to an inpatient rehab. Continue current medication. Encourage individual, group, and milieu therapy. Continue q-15 minute checks for safety. Will connect with [facility] on Tuesday morning and hopefully discharge after that follow-up interview. Involuntary Hold Information 96 Hour Hold: 96 Hour Involuntary Admission: No 96 Hour Hold Ending Date: 04/16/19 96 Hour Hold Ending Time: 20:28 Attestations NPU Medical Necessity Statement*: Inpatient hospitalization is medically necessary, and the clinically appropriate intervention at this time. We will monitor medications and make changes as indicated. Likely length of stay 2-4 days. Coding Level of Care Code Acute Women'S Studies Professor for Kaitlynn Wallace
[2019-09-08 14:00] VITALS: BP 106/62; PULSE 61; RESP 18; TEMP 36.3
[2019-09-08 20:43] VITALS: RESP 17; O2SAT 97
[2019-09-08] MEDS: oxyCODONE 5 mg IR Tab/Cap 10 MG PO (20:43)
[2019-09-08] MEDS: trazodone 50 mg Tablet PO (20:43)
--- NOTE | 2019-09-08 20:45 | PC.NURSE ---
PRN TRAZODONE PT REQUESTING SLEEP AID. ADMINISTERED TRAZODONE 50 MG PO. WILL MONITOR FOR MEDICATION EFFECTIVENESS.
[2019-09-08 22:00] VITALS: BP 99/68; PULSE 79; RESP 20; TEMP 37; O2SAT 99
[2019-09-09 06:00] VITALS: BP 109/75; PULSE 55; RESP 19; TEMP 36.8; O2SAT 97
[2019-09-09] MEDS: ARIPiprazole 10 mg Tablet 5 MG PO (07:54)
[2019-09-09] MEDS: baclofen 10 mg Tablet PO ×3 (07:54→20:28)
[2019-09-09 14:00] VITALS: RESP 18
--- NOTE | 2019-09-09 14:38 | PC.NURSE ---
pt refused scheduled Baclofen, pt stated i'm not taking anything else
--- NOTE | 2019-09-09 16:42 | PM.NPN ---
Subjective NPU Subjective: Interval history: Mt presented today reporting that he is doing fine, and he is optimistic about his second interview tomorrow. He reports that the medications have been effective and that he feels that he has the tools necessary to go to this program and have success. He denied any problems or concerns. He reports he is eating and sleeping well and looking forward to the next stages of recovery. Mental Status Exam MSE Comments: This is a well-nourished, well-developed, white male, with adequate dress, grooming, and eye contact. No abnormal movements except for psychomotor retardation. Cooperative with exam in no acute distress. Speech was more normal rate and volume. Mood described as getting better; affect congruent. Thought process, organized. Thought content: patient denied any suicidal or homicidal ideation, there were no delusions reported or noted, patient denied any auditory or visual hallucinations. Attention, concentration, and memory appear intact but were not formally tested. He is alert and oriented times three. Insight and judgment are improving. Impulse control is limited. Vitals/I&O/Wt Last Vital Signs Temp 98.2 F 09/09/19 06:00 Pulse 55 L 09/09/19 06:00 Resp 18 09/09/19 14:00 BP 109/75 09/09/19 06:00 Pulse Ox 97 09/09/19 06:00 Weight last 48 hrs Weight 78.381 kg Data NPU : 09/06/19 19:12 09/06/19 19:12 A&P Additional A&P Information (1) Suicidal ideation: (2) Adjustment disorder with depressed mood: (3) Antisocial personality disorder: (4) Methamphetamine abuse: (5) Cannabis abuse: (6) Drug-induced psychotic disorder: This is a 54 year old, white male, with antisocial personality disorder, methamphetamine use by history, polysubstance use by history, depressive disorder, unspecified, anxiety disorder, unspecified, rule out post-traumatic stress disorder, who presents with continued difficulty with integration in this society since release from [facility] and struggling with active addiction, desiring stabilization on his psychiatric medications and referral to an inpatient rehab. Continue current medication. Encourage individual, group, and milieu therapy. Continue q-15 minute checks for safety. [place] [facility] and hopefully discharge after that follow-up interview. Involuntary Hold Information 96 Hour Hold: 96 Hour Involuntary Admission: No 96 Hour Hold Ending Date: 04/16/19 96 Hour Hold Ending Time: 20:28 Attestations NPU Medical Necessity Statement*: Inpatient hospitalization is medically necessary, and the clinically appropriate intervention at this time. We will monitor medications and make changes as indicated. Likely length of stay 1-3 days. Coding Level of Care Code Acute Leather Carver for Kaitlynn Wallace
[2019-09-09 20:27] VITALS: RESP 18
[2019-09-09] MEDS: trazodone 50 mg Tablet PO (20:27)
[2019-09-09] MEDS: oxyCODONE 5 mg IR Tab/Cap 10 MG PO (20:27)
[2019-09-09] MEDS: hyDROXYzine 25 mg Capsule 50 MG PO (20:28)
--- NOTE | 2019-09-09 20:49 | PC.NURSE ---
pt given scheduled baclofen and PRN trazodone and vistaril per request.
[2019-09-09 21:57] VITALS: BP 94/61; PULSE 74; RESP 18; TEMP 36.5; O2SAT 96
[2019-09-10 06:00] VITALS: BP 93/63; PULSE 54; RESP 15; TEMP 36.7; O2SAT 96
[2019-09-10] MEDS: ARIPiprazole 10 mg Tablet 5 MG PO (08:59)
[2019-09-10] MEDS: baclofen 10 mg Tablet PO (08:59)
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
[2019-09-10 10:39] VITALS: BP 93/63; PULSE 54; RESP 15; TEMP 36.7; O2SAT 96
== END 2019-09-10 11:28 | disposition home or self-care (01) | DRG 881 ==
LOC: ER 19:46 → NP 19:56
PROVIDERS: Emergency Medicine; Admitting Provider Psychiatry & Neurology Psychiatry; PCP Family Medicine; Visit Provider Psychiatry & Neurology Psychiatry
DX: F43.21 Adjustment disorder with depressed mood (principal); R45.851 Suicidal ideations; F12.10 Cannabis abuse, uncomplicated; F15.10 Other stimulant abuse, uncomplicated; F60.2 Antisocial personality disorder; F19.959 Other psychoactive substance use, unspecified with psychoactive substance-induced psychotic disorder, unspecified; R45.850 Homicidal ideations; F17.210 Nicotine dependence, cigarettes, uncomplicated
CPT/HCPCS: 12345; 80053; 80306; 80307; 84443; 85025; 93005; 99282; 99285

== ENCOUNTER 2019-10-22 08:37 | Emergency (ER) | payer MEDICAID, SELFPAY ==
[2019-10-22 08:46] VITALS: BP 128/75; PULSE 97; RESP 20; TEMP 37; O2SAT 97; BMI 27.3
[2019-10-22 08:55] VITALS: BP 120/71; PULSE 97; RESP 18; TEMP 36.9; O2SAT 97
--- NOTE | 2019-10-22 08:59 | ED_ITS ---
HPI - Skin/Abscess/Foreign Bdy General: Chief complaint: Skin/Abscess/Foreign Body Stated complaint: KNOT ON R LEG Time Seen by Provider: 10/22/19 08:38 History of Present Illness: HPI narrative: Patient has a tender area right thigh near his buttocks been getting worse over the last few days complaint: abscess/boil Onset (ago): day(s) Location: RLE Severity: moderate Quality: aching Pain Consistency: constant Relieving factors: immobilization Exacerbating factors: movement Context: none Associated symptoms: Deny chills, fever(s), nausea or vomiting Review of Systems Const: Denies: fever(s), chills or body aches Eyes: Denies: change in vision or blurry vision ENMT: Denies: throat pain or nasal congestion Card: Denies: chest pain or dyspnea on exertion Resp: Denies: dyspnea, productive cough or non-productive cough GI: Denies: abdominal pain, nausea or vomiting : Denies: difficulty urinating Musc: Denies: extremity pain Skin/Breast: Reports: erythema, skin tenderness and skin swelling (Right lower extremity up near the buttocks); Denies: rash Neuro: Denies: headache(s) Psych: Denies: anxiety or depression Jordan/Lymph: Denies: easy bruising PFSH ED PFSH: Family History Other Diabetes Denies family history of Cancer Social History Smoking and tobacco status: current every day smoker Alcohol intake: never Household members: other Details: Lives in his car, staying with a girl right now Current occupational status: unemployed Physical Exam Const: COMMON NORMALS: no acute distress Psych: COMMON NORMALS: mental status grossly normal Skin: OTHER: Abscess right upper thigh inside part near the buttocks indurated Procedures Abscess I/D Site: lower extremity Side (if applicable): right Local Anesthetic: lidocaine 1% Amount of anesthesia used (mL): 3 Technique: incised with #11 blade Amount of fluid expressed (mL): 0 Irrigation: Yes Packing used?: none Complications: pain Course Vital Signs: Vital signs: Vital Signs Temperature 98.4 F 10/22/19 08:55 Pulse Rate 97 10/22/19 08:55 Respiratory Rate 14 10/22/19 09:21 Blood Pressure 120/71 10/22/19 08:55 Pulse Oximetry 97 10/22/19 08:55 MDM - Skin/Abscess/Foreign Bdy MDM Narrative: Medical decision making narrative: I indeed what appear to be an abscess and indurated places on the patient's right lower extremity up near the buttocks. Size #11 blade after lidocaine and sterile Betadine prep. Went pretty deep with the blade and use curved forceps to root around and try to find an abscess was unable to collect any pustular material. Patient was advised if worsening symptoms return here patient is in rehab currently on unable to take any narcotics. Patient advised to soak hot baths 2-3 times a day Epson salts Discharge Plan Discharge Patient Disposition: Home Clinical Impression: Cellulitis Qualifiers: Site of cellulitis: extremity Site of cellulitis of extremity: lower extremity Laterality: right Qualified Code(s): L03.115 - Cellulitis of right lower limb Condition: Stable Prescriptions: New clindamycin HCl 300 mg capsule 300 mg PO TID 7 Days Qty: 21 RF: 0 Naprosyn 500 mg tablet 500 mg PO TID PRN (Reason: pain) Qty: 14 RF: 0 No Action trazodone 50 mg Tablet 50 mg PO BEDTIME PRN (Reason: Sleep) Qty: 15 RF: 3 baclofen 10 mg Tablet 10 mg PO TID Qty: 90 RF: 3 aripiprazole 10 mg Tablet 5 mg PO DAILY Qty: 30 RF: 3 hydroxyzine pamoate 25 mg Capsule 50 mg PO Q6H PRN (Reason: Anxiety) Qty: 30 RF: 3 oxycodone 10 mg tablet 10 mg PO BID PRN (Reason: Pain) Qty: 30 RF: 0 Discharge Orders: Discharge Order (Routine); Ordered 10/22/19 Ordered By: Pal Murray Referrals: Elizabeth De aSntiago DO [Primary Care Provider] - Discharge Diet: As Directed Discharge Activity: Increase activity as tolerated Patient Instructions: Cellulitis (ED) Activity Restrictions/Additional Instructions: Follow-up with medical provider as directed. Take medications as prescribed. Return to the ER or your medical provider if condition worsens. Please read and understand discharge instructions. If any questions ask please. Discharge Date/Time: 10/22/19 09:25 Coding Level of Care Code ED Prepress Technician for Chg Fwd Exam Expanded Problem Focused
[2019-10-22] MEDS: clindamycin 150 mg Capsule 300 MG PO (09:20)
[2019-10-22 09:21] VITALS: RESP 14
[2019-10-22] MEDS: naproxen 500 mg Tablet PO (09:21)
[2019-10-22] MEDS: lidocaine 1% INJ 20 mL INTRADERMA (09:24)
== END 2019-10-22 09:25 | disposition home or self-care (01) ==
PROVIDERS: Emergency Provider Nurse Practitioner Family; PCP Family Medicine
DX: L03.115 Cellulitis of right lower limb (principal); F17.210 Nicotine dependence, cigarettes, uncomplicated
CPT/HCPCS: 10060; 12345; 87070; 87077; 87186; 96372; 99282; 99283

== ENCOUNTER 2019-10-23 20:30 | Emergency (ER) | payer MEDICAID, SELFPAY ==
[2019-10-23 20:34] VITALS: BP 98/56; PULSE 90; RESP 19; TEMP 36.7; O2SAT 100; BMI 25.1
--- NOTE | 2019-10-23 20:41 | ED_ITS ---
HPI - Wound/Laceration General: Chief Complaint: Wound/Laceration Stated Complaint: possible cyst on inner thigh Time Seen by Provider: 10/23/19 20:40 History of Present Illness: HPI narrative: Patient is a 54-year-old male who comes to the ED with cellulitis and possible abscess on right inner thigh. Patient was seen here in the ED for same complaint yesterday. The provider performed read I&D and stated no purulent drainage or pustule pocket identified. Patient was discharged and put on a prescription of clindamycin. Patient says the redness, pain and swelling is gotten worse since yesterday. Denies any purulent drainage. He has taken all his doses of clindamycin today. Patient said he would not let me perform any incision or drainage here in the ED. he reports pain a 10 out of 10. Patient also complaining of having some constipation and not having a bowel movement for the past several days. Patient admits to IV meth drug use in the past 3 weeks and he has a history of staph and MRSA infections. Associated symptoms: Denies chills, fever(s), nausea or vomiting Review of Systems Const: Denies: fever(s), chills or fatigue Eyes: Denies: change in vision or eye discomfort ENMT: Denies: throat pain, odynophagia, nasal discharge or nasal congestion Card: Denies: chest pain, palpitations, edema, swelling of feet/ankles, dyspnea on exertion or orthopnea Resp: Denies: dyspnea, productive cough or non-productive cough GI: Reports: constipation; Denies: abdominal pain, nausea, vomiting, diarrhea or hematochezia : Denies: flank pain, difficulty urinating, dysuria or hematuria Musc: Denies: neck pain, back pain or extremity swelling Skin/Breast: Reports: new lesions (Right inner thigh skin infection or possible abscess.); Denies: rash Neuro: Denies: headache(s), numbness in extremities or weakness in extremities PFSH ED PFSH: Family History Other Diabetes Denies family history of Cancer Social History Smoking and tobacco status: current every day smoker Alcohol intake: never Household members: other Details: Lives in his car, staying with a girl right now Current occupational status: unemployed Physical Exam Const: COMMON NORMALS: no acute distress, patient oriented x3 and alert GENERAL APPEARANCE: cooperative; not comfortable (pt was uncomfortable and in pain due to lesion on right inner thigh.) HENMT: COMMON NORMALS: normocephalic HEAD & SCALP: normocephalic MOUTH: Normal oral and palatal mucosa present THROAT: posterior oropharynx normal and uvula midline Neck/C-Spine: COMMON NORMALS: supple GENERAL: Yes normal visual inspection Resp: COMMON NORMALS: normal respiratory effort, No retractions, No use of acc essory muscles and clear to auscultation bilaterally AUSCULTATION: clear to auscultation bilaterally Cardio: COMMON NORMALS: regular rate, regular rhythm, S1 normal heart sound present, S2 normal heart sound present, No gallops present (Cardio), No clicks present (Cardio), No murmurs present (Cardio) and Peripheral pulses 2+ throughout RATE: regular rate RHYTHM: regular rhythm HEART SOUNDS: S1 normal heart sound present and S2 normal heart sound present PERIPHERAL PULSES: Peripheral pulses 2+ throughout GI: COMMON NORMALS: Normal to inspection, nondistended, normoactive bowel sounds present, Soft to palpation, non-tender and no masses PALPATION: Yes Soft to palpation : COMMON NORMALS: Yes no CVA tenderness BLADDER/KIDNEY EXAM: Yes no CVA tenderness Back/Pelvis: COMMON NORMALS: no CVA tenderness Extremity: NARRATIVE EXTREMITY EXAM: Lesion is located in the upper inner right thigh. erythema warmth and tenderness present. No visual purulent drainage seen. Lesion feels firm to palpation and nonfluctuant. Neuro: COMMON NORMALS: patient oriented x3 and moves all extremities SENSORIUM/ORIENTATION: Yes alert Skin: NARRATIVE SKIN EXAM: Lesion is located in the upper inner right thigh. erythema warmth and tenderness present. No visual purulent drainage seen. Lesion feels firm to palpation and nonfluctuant. Lesion appears to be cellulitis with possible abscess formation. GENERAL SKIN EXAM: dry skin Course Reevaluation(s): Reevaluation #1: Bedside ultrasound was performed on lesion in pustule pocket was identified. Vital Signs: Vital signs: Vital Signs Temperature 98.1 F 10/23/19 20:34 Pulse Rate 90 10/23/19 20:34 Respiratory Rate 19 H 10/23/19 20:34 Blood Pressure 98/56 09/15/20 20:34 Pulse Oximetry 100 10/23/19 20:34 MDM - Wound/Laceration MDM Narrative: Medical decision making narrative: Patient is a 54-year-old male who comes to the ED with lesion on right upper inner thigh. He was seen here in the ED last night and they performed an I&D and there was no purulent drainage or pustule pocket seen during procedure. Patient was put on clindamycin and he says he has been taking his doses today as prescribed. In ED he says the redness, pain and swelling is gotten worse since yesterday. Denies purulent drainage. He is also complaining of having some constipation over the past couple days. Patient said he would not let me poke or try to drain wound here in the ED. I performed a bedside ultrasound on lesion and could not identify a pustule pocket. Patient was given a 1g of Rocephin and sent home with a dose of mag citrate to help with constipation. Put an order with case management for him to be referred to a general surgeon to evaluate cellulitis and abscess. I told patient to continue taking the previously prescribed clindamycin. Return to ED precautions given. I told patient that case management should be contacting him in the next several days to set up appointment with general surgery. Patient understood and agreed with plan. Discharge Plan Discharge Patient Disposition: Home Clinical Impression: Cellulitis and abscess of right leg Constipation Qualifiers: Constipation type: slow transit constipation Qualified Code(s): K59.01 - Slow transit constipation Condition: Stable Prescriptions: No Action clindamycin HCl 300 mg capsule 300 mg PO TID 7 Days Qty: 21 RF: 0 naproxen [Naprosyn] 500 mg tablet 500 mg PO TID PRN (Reason: pain) Qty: 14 RF: 0 Discharge Orders: Discharge Order (Routine); Ordered 10/23/19 Ordered By: José Manuel Posey Referrals: Elizabeth De Santiago DO [Primary Care Provider] - Discharge Diet: Regular Discharge Activity: Increase activity as tolerated Patient Instructions: Constipation - Adult, Cellulitis (ED), Abscess (ED), Skin Abscess - Antibiotics Activity Restrictions/Additional Instructions: Follow-up with medical provider as directed. Continue taking antibiotic as prescribed. Case management should be contacting you in the next several days to set up an appointment with general surgery to get abscess evaluated and possibly removed surgically. Take mag citrate to help with constipation and take [id number] MiraLAX to help with constipation symptoms as well. Return to the ER or your medical provider if condition worsens. Please read and understand discharge instructions. If any questions, please ask. Coding Level of Care Code ED Machine Filler Shredder for Kaitlynn Fwd Exam Comprehensive
[2019-10-23] MEDS: HYDROcodone-acetaminophen 7.5-325 mg Tablet 1 TAB PO (21:16)
--- NOTE | 2019-10-23 21:38 | PC.NURSE ---
Patient would not wait for the medication to be brought from pharmacy before discharge.
--- NOTE | 2019-10-24 11:10 | DCPLANNER ---
content creation manager had message to schedule a follow up appointment for patient with general surgery. content creation manager called [facility], spoke with Carly, gave clinic patients information. A follow up appointment was scheduled for , October 25, [address] at 9:[address] Amaya. Clinic will call patient with appointment information.
--- NOTE | 2019-10-25 13:59 | DCPLANNER ---
Patient had an appointment scheduled for 10.25.19 with Plant Technician/Control Room Operator clinic - patient did attend appointment.
== END 2019-10-23 21:38 | disposition home or self-care (01) ==
PROVIDERS: Emergency Provider Physician Assistant; PCP Family Medicine
DX: L03.115 Cellulitis of right lower limb (principal); L02.415 Cutaneous abscess of right lower limb; K59.01 Slow transit constipation; F17.210 Nicotine dependence, cigarettes, uncomplicated
CPT/HCPCS: 12345; 99281; 99282

== ENCOUNTER 2019-11-12 20:52 | Emergency (ER) | payer MEDICAID, SELFPAY ==
--- NOTE | 2019-11-12 21:08 | ED_ITS ---
HPI - Extremity Injury (Lower) General: Stated Complaint: foot pain Time Seen by Provider: 11/12/19 20:53 Source: patient and EMS Mode of arrival: EMS Limitations: no limitations History of Present Illness: HPI Narrative: 54-year-old male is well-known to the ER. He states he is got blisters on his feet from walking all day. He states his pain is a 5 out of 10. Denies any other complaints. Patient was able ambulate here. He states his pain is improved with rest and worse with walking. Review of Systems Const: Denies: fever(s), chills, body aches or change in appetite Eyes: Denies: blurry vision or eye discomfort ENMT: Denies: throat pain or dental pain Card: Denies: chest pain Resp: Denies: dyspnea GI: Denies: abdominal pain, nausea, vomiting or diarrhea : Denies: dysuria Musc: Denies: neck pain or back pain Skin/Breast: Denies: rash Neuro: Denies: headache(s) Psych: Denies: depression Jordan/Lymph: Denies: easy bruising All/Imm: Denies: urticaria PFSH ED PFSH: Family History Other Diabetes Denies family history of Anesthesia complication Bleeding disorder Cancer Social History Smoking and tobacco status: current every day smoker Alcohol intake: never Household members: significant other and other Details: Lives in his car, staying with a girl right now Marital status: Single Current occupational status: unemployed History of recent travel: No Physical Exam Const: COMMON NORMALS: no acute distress, patient oriented x3 and healthy appearing HENMT: COMMON NORMALS: normocephalic and atraumatic HEAD & SCALP: normocephalic and atraumatic Eye: COMMON NORMALS: Equal, round and reactive pupils present and EOMs intact bilaterally PUPIL: Yes Equal, round and reactive pupils present Neck/C-Spine: COMMON NORMALS: full ROM and supple Chest: COMMONS NORMALS: normal inspection of the chest and normal palpation of entire chest wall Resp: COMMON NORMALS: normal respiratory effort, No retractions, No use of accessory muscles and clear to auscultation bilaterally AUSCULTATION: clear to auscultation bilaterally Cardio: COMMON NORMALS: regular rate, regular rhythm and No murmurs present (Cardio) RATE: regular rate RHYTHM: regular rhythm GI: COMMON NORMALS: Normal to inspection, nondistended, normoactive bowel sounds present, Soft to palpation, non-tender and no masses PALPATION: Yes Soft to palpation Extremity: COMMON NORMALS: normal to inspection and full ROM NARRATIVE EXTREMITY EXAM: Patient has been bilateral blisters to feet over the plantar surface. These are small blisters 1 on each foot. He has no signs of infection and no redness. Neuro: COMMON NORMALS: patient oriented x3, moves all extremities and no focal motor deficits Psych: COMMON NORMALS: mental status grossly normal, Normal thought process present and cooperative THOUGHT PROCESS: Normal thought process present Skin: COMMON NORMALS: no rashes or lesions noted and no wounds GENERAL SKIN EXAM: no rashes or lesions noted MDM - Extremity Injury (Lower) MDM Narrative: Medical decision making narrative: Patient presents with fever blisters. He is well-appearing here and has no other injuries. He is stable for discharge and he is to follow-up PCP and return if worsening. Discharge Plan Discharge Patient Disposition: Home Clinical Impression: Foot pain, right Condition: Stable Prescriptions: No Action naproxen [Naprosyn] 500 mg tablet 500 mg PO TID PRN (Reason: pain) Qty: 14 RF: 0 Discharge Orders: Discharge Order (Routine); Ordered 11/12/19 Ordered By: Mariajose Serrano Referrals: Elizabeth De Santiago DO [Primary Care Provider] - Discharge Diet: Advance as tolerated Discharge Activity: Resume usual activity Patient Instructions: Arthralgia (ED) Coding Level of Care Code ED Integration Software Developer for Kaitlynn Wallace
[2019-11-12 21:10] VITALS: BMI 25.7
== END 2019-11-12 21:19 | disposition home or self-care (01) ==
LOC: ER 01-10 10:36
PROVIDERS: Emergency Provider Emergency Medicine; PCP Family Medicine
DX: M79.671 Pain in right foot (principal); F17.210 Nicotine dependence, cigarettes, uncomplicated
CPT/HCPCS: 12345; 99281

== ENCOUNTER 2019-11-13 20:57 | Emergency (ER) | payer MEDICAID, SELFPAY ==
[2019-11-13 21:04] VITALS: BP 116/79; PULSE 92; RESP 20; TEMP 36.3; O2SAT 100; BMI 27.3
--- NOTE | 2019-11-13 21:51 | ED_ITS ---
HPI - Altered Mental Status General: Chief Complaint: Altered Mental Status Stated Complaint: feeling dizzy Time Seen by Provider: 11/13/19 21:14 Source: patient Mode of arrival: ambulatory Limitations: no limitations History of Present Illness: HPI narrative: Mt is a nice 54-year-old male who comes in complaining of dizziness and lightheadedness. He states he is felt like he is nearly passed out a few times today. States he feels weak all over. Denies any chest pain or shortness of breath. Has had no fevers or chills denies any other complaints. Patient states that he has had these symptoms before but no findings can be found to explain the symptoms. Patient currently states he feels tired but denies any other symptoms presently. Review of Systems Const: Denies: fever(s), chills, body aches, fatigue, malaise or diaphoresis Eyes: Denies: change in vision, blurry vision, photophobia, eye discomfort, eye discharge, eye redness or yellow eyes ENMT: Denies: throat pain, odynophagia, hoarseness, swelling of lips/tongue, ear or mastoid pain, ear discharge, change in hearing or nasal discharge Card: Reports: palpitations and lightheadedness; Denies: chest pain, irregular heart rhythm, edema, syncope, pre-syncope, dyspnea on exertion or orthopnea Resp: Denies: dyspnea, productive cough, non-productive cough, wheezing, hemoptysis or chest congestion GI: Denies: abdominal pain, nausea, vomiting, hematemesis, coffee ground emesis, heartburn, diarrhea, constipation, GI cramping, hematochezia or melena : Denies: flank pain, dysuria, urinary frequency, urinary urgency or hematuria Musc: Denies: neck pain, back pain, extremity pain, extremity swelling, joint pain, joint swelling, joint redness, joint warmth or joint stiffness Skin/Breast: Denies: rash, pruritus, erythema, skin pain or skin tenderness Neuro: Denies: headache(s), numbness in extremities, weakness in extremities, sensory changes, lack of coordination, difficulty walking, dizziness, vertigo, confusion, Slurred speech present or seizure-like activity Jordan/Lymph: Denies: easy bruising, easy bleeding, petechiae, purpura or enlarged lymph nodes All/Imm: Denies: urticaria, throat swelling, tongue swelling, facial swelling or acute wheezing PFSH ED PFSH: Medical History (Updated 11/13/19 @ 21:58 by Gavi López) Sebaceous cyst Surgical History (Updated 11/13/19 @ 21:56 by Gavi López) H/O circumcision History of back surgery History of foot surgery History of nasal surgery History of neck surgery x2 Family History Other Diabetes Denies family history of Anesthesia complication Bleeding disorder Cancer Social History Smoking and tobacco status: current every day smoker Alcohol intake: never Household members: significant other and other Details: Lives in his car, staying with a girl right now Marital status: Single Current occupational status: unemployed History of recent travel: No Physical Exam Const: COMMON NORMALS: no acute distress, patient oriented x3, no limitations and alert GENERAL APPEARANCE: cooperative HENMT: COMMON NORMALS: normocephalic, atraumatic, external ears normal, EAC's normal and Normal external nose present HEAD & SCALP: normal to inspection, normocephalic and atraumatic FACE & SINUS: normal facial exam and face symmetric NOSE: Normal external nose present and Normal nares present EXTERNAL EAR: Yes external ears normal EXTERNAL AUDITORY CANAL: EAC's normal MOUTH: Normal oral and palatal mucosa present, lip normal and tongue normal Eye: COMMON NORMALS: Equal, round and reactive pupils present and conjunctivae normal GENERAL EYE: appearance normal, both eyes and all related structures ALIGNMENT: Yes alignment normal PERIORBITAL: periorbital findings normal EYELID: eyelids normal CONJUNCTIVA: Yes conjunctivae normal SCLERA: sclerae normal PUPIL: Yes Equal, round and reactive pupils present Neck/C-Spine: COMMON NORMALS: full ROM, no lymphadenopathy, supple, no meningeal signs and no JVD GENERAL: Yes normal visual inspection and Yes trachea midline Chest: COMMONS NORMALS: normal inspection of the chest and normal palpation of entire chest wall Resp: COMMON NORMALS: normal respiratory effort, No retractions, No use of accessory muscles and clear to auscultation bilaterally EFFORT & INSPECTION: Yes able to speak in complete sentences and Yes symmetric chest movement AUSCULTATION: clear to auscultation bilaterally, no crackles, no rales, no rho nchi and no wheezes Cardio: COMMON NORMALS: no JVD, regular rate, regular rhythm, S1 normal heart sound present and S2 normal heart sound present RATE: regular rate RHYTHM: regular rhythm HEART SOUNDS: S1 normal heart sound present, S2 normal heart sound present, no click, no gallops, no murmurs and no rubs GI: COMMON NORMALS: Soft to palpation and No hepatosplenomegaly present PALPATION: Yes Soft to palpation, No Tenderness to palpation present (GI), No Guarding due to palpation present (GI), No Rigid due to palpation, Yes No hepatosplenomegaly present, No Hernia present, No Palpable mass present and No Pulsatile mass present : COMMON NORMALS: Yes no CVA tenderness BLADDER/KIDNEY EXAM: Yes no CVA tenderness Back/Pelvis: COMMON NORMALS: no CVA tenderness, thoracic and lumbar spine normal to inspection, no thoracic nor lumbar tenderness and thoraco-lumbar ROM normal Extremity: COMMON NORMALS: normal to inspection, full ROM, capillary refill normal, no joint enlargement, no clubbing, cyanosis or edema and no calf tenderness Neuro: CYNTHIA COMA SCALE: document GCS findings Pattison coma scale eye opening: Spontaneous Cynthia coma scale verbal response: Orientated Cynthia coma scale motor response: Obey commands Cynthia coma scale total score: 15 COMMON NORMALS: patient oriented x3, CN's II-XII intact bilaterally, moves all extremities, no focal motor deficits and no sensory deficits noted SENSORIUM/ORIENTATION: Yes alert MENINGEAL SIGNS: Yes no meningeal signs SPEECH: speech normal Psych: COMMON NORMALS: mental status grossly normal, Normal thought process present, cooperative, normal affect, speech normal and activity/motor behavior normal SPEECH: Yes normal speech THOUGHT PROCESS: Normal thought process present Skin: COMMON NORMALS: no rashes or lesions noted, turgor normal, no jaundice, no petechiae and no mottling GENERAL SKIN EXAM: no rashes or lesions noted and turgor normal Course Vital Signs: Vital signs: Vital Signs Temperature 97.4 F L 11/13/19 21:04 Pulse Rate 92 11/13/19 21:04 Respiratory Rate 20 H 11/13/19 21:04 Blood Pressure 116/79 11/13/19 21:04 Pulse Oximetry 100 11/13/19 21:04 MDM - Altered Mental Status MDM Narrative: Medical decision making narrative: Very shortly after my history the patient became agitated and mad because we would not let him have something to drink. We did inform him he could have something after we establish an IV and an EKG. Patient became irate and upset and told as he was leaving. He immediately began to put on his clothes and walked out of the hospital. Patient was clearly alert and oriented to person, place, time and situation. He showed no sign of impairment. GCS was 15. Despite trying to offered to let the patient have something to drink later after we had our initial blood work and EKG he refused to stay for this and walked out of the ER. He would not wait for discharge instructions and would not wait to sign AGAINST MEDICAL ADVICE form. He did understand he was leaving AGAINST MEDICAL ADVICE but still refused to wait to sign a form acknowledging such. Discharge Plan Discharge Patient Disposition: Left Against Medical Advice Clinical Impression: Episodic lightheadedness, Palpitations Condition: Stable Prescriptions: No Action naproxen [Naprosyn] 500 mg tablet 500 mg PO TID PRN (Reason: pain) Qty: 14 RF: 0 Referrals: Elizabeth De Santiago DO [Primary Care Provider] - Coding Level of Care Code ED Pl Sql Developer for Chg Rodrigo
--- NOTE | 2019-11-13 22:09 | PC.NURSE ---
When this RN at [facility] attempted to start IV and give medication, patient asked for a drink of water, we stated, give us a minute to ask the doctor if you can patient became irate and agitated, stating, it is inhumane to not give me a drink of water and started cursing [facility], Dr. López notified, stated, that patient has to follow the rules or he can leave patient became even more agitated and started getting dressed, patient walked out of ER, security and PD notified, patient left AMA
== END 2019-11-13 22:15 | disposition left against medical advice (07) ==
PROVIDERS: Emergency Provider Emergency Medicine; PCP Family Medicine
DX: R00.2 Palpitations (principal); R42 Dizziness and giddiness; Z53.21 Procedure and treatment not carried out due to patient leaving prior to being seen by health care provider; F17.210 Nicotine dependence, cigarettes, uncomplicated
CPT/HCPCS: 12345; 99281

== ENCOUNTER 2019-12-06 21:42 | Emergency (ER) | payer MEDICAID, SELFPAY ==
[2019-12-06 21:45] VITALS: BP 146/93; PULSE 98; RESP 18; TEMP 36.5; O2SAT 99; BMI 27.3
--- NOTE | 2019-12-06 21:58 | ED_ITS ---
HPI - General Adult General: Chief complaint: Abdominal Pain Stated complaint: ab pain Time Seen by Provider: 12/06/19 21:56 History of Present Illness: HPI narrative: States his right kid kidney hurts. Denies kidney stone because it has had one was before and it and feel like that. Thinks he might have an infection he said he has been going to bathroom more frequently. He also says that his presented with some meth the other day 4 to 5 days ago and he shot that up and he thinks he is felt off since then. complaint: Kidney pain Onset (ago): day(s) Associated symptoms: Reports no associated symptoms; Deny chest pain, dyspnea, headache(s), nausea, rash or vomiting Treatments prior to arrival: none Review of Systems Const: Denies: fever(s), chills or body aches Eyes: Denies: change in vision or blurry vision ENMT: Denies: throat pain or nasal congestion Card: Denies: chest pain or dyspnea on exertion Resp: Denies: dyspnea, productive cough or non-productive cough GI: Denies: abdominal pain, nausea or vomiting : Reports: flank pain and urinary urgency; Denies: difficulty urinating Musc: Denies: extremity pain Skin/Breast: Denies: rash Neuro: Denies: headache(s) Psych: Denies: anxiety or depression Jordan/Lymph: Denies: easy bruising PFSH ED PFSH: Medical History (Updated 11/21/19 @ 00:01 by ) Sebaceous cyst Surgical History (Updated 11/13/19 @ 21:56 by Gavi López) H/O circumcision History of back surgery History of foot surgery History of nasal surgery History of neck surgery x2 Family History Other Diabetes Denies family history of Anesthesia complication Bleeding disorder Cancer Social History Smoking and tobacco status: current every day smoker Alcohol intake: never Household members: significant other and other Details: Lives in his car, staying with a girl right now Marital status: Single Current occupational status: unemployed History of recent travel: No Physical Exam Const: COMMON NORMALS: no acute distress, average body habitus and patient oriented x3 HENMT: COMMON NORMALS: normocephalic HEAD & SCALP: normal to inspection and normocephalic FACE & SINUS: normal facial exam Eye: COMMON NORMALS: conjunctivae normal GENERAL EYE: appearance normal, both eyes and all related structures CONJUNCTIVA: Yes conjunctivae normal Neck/C-Spine: COMMON NORMALS: no JVD Chest: COMMONS NORMALS: normal inspection of the chest Resp: COMMON NORMALS: normal respiratory effort and clear to auscultation bilaterally AUSCULTATION: clear to auscultation bilaterally Cardio: COMMON NORMALS: no JVD, regular rate and regular rhythm RATE: regular rate RHYTHM: regular rhythm GI: COMMON NORMALS: Normal to inspection, nondistended, normoactive bowel sounds present : BLADDER/KIDNEY EXAM: Yes CVA tenderness on the right Back/Pelvis: GENERAL BACK: Yes CVA tenderness Extremity: COMMON NORMALS: normal to inspection and full ROM Neuro: COMMON NORMALS: patient oriented x3 Course Vital Signs: Vital signs: Vital Signs Temperature 97.7 F 12/06/19 21:45 Pulse Rate 98 12/06/19 21:45 Respiratory Rate 16 12/06/19 23:39 Blood Pressure 146/93 12/06/19 21:45 Pulse Oximetry 99 12/06/19 21:45 MDM - General Adult Lab Data: Labs: Lab Results 12/06/19 Range/Units 22:28 Urine Color Yellow (Yellow) Urine Appearance Hazy A (CLEAR) Urine pH 5 (5-7) Ur Specific Gravit y 1.025 (1.005-1.030) Urine Protein Neg (Negative) Urine Glucose (UA) Norm (Normal) Urine Ketones Negative (Negative) Urine Blood 3+ H (Negative) Urine Nitrate Negative (Negative) Urine Bilirubin Neg (Negative) Urine Urobilinogen Norm (Negative) mg/dL Ur Leukocyte Raiza ase Negative (Negative) Urine RBC 15-25 H (0-2) /hpf Urine WBC None (0-5) /hpf Ur Squamous Epith Cells 0-4 H (0-5) /hpf Ur Transition Epit h Cell 0-4 /hpf Ur Renal Epithelia l Cell N /hpf Amorphous Sediment Not Reportable Urine Bacteria Trace (NONE) /hpf Urine Mucus 2+ /hpf Discharge Plan Discharge Patient Disposition: Left Against Medical Advice Prescriptions: No Action naproxen [Naprosyn] 500 mg tablet 500 mg PO TID PRN (Reason: pain) Qty: 14 RF: 0 Discharge Orders: Discharge Order (Routine); Ordered 12/06/19 Ordered By: Pal Murray Referrals: Elizabeth De Santiago DO [Primary Care Provider] - Discharge Date/Time: 12/06/19 23:40 Coding Level of Care Code ED Spring Clipper for Chg Fwd Exam Comprehensive
[2019-12-06 23:39] VITALS: RESP 16
[2019-12-07 00:10] LABS: Add Urine Microscopic? YES; Bilirubin Urine Neg (Negative); Blood Urine 3+ (Negative); Glucose Urine UA Norm (Normal); Ketones Urine Negative (Negative); Leukocyte Esterase Urine Negative (Negative); Nitrate Urine Negative (Negative); Protein Urine Neg (Negative); Specific Gravity, Urine 1.025 (1.005-1.030); Urine Appearance Hazy (CLEAR); Urine Color Yellow (Yellow); Urobilinogen Urine Norm (Negative); pH Urine 5 (5-7)
[2019-12-07 00:15] LABS: Add Urine Culture? Yes; Bacteria Urine TRACE /hpf; Mucus Urine 2+ /hpf; RBC Urine 15-25 /hpf (0-2); Renal Epithelial Cells Urine N /hpf; Squamous Epithelial Cell Urine 0-4 /hpf (0-5); Transitional Epi Cells Urine 0-4 /hpf
== END 2019-12-06 23:40 | disposition left against medical advice (07) ==
PROVIDERS: Emergency Provider Nurse Practitioner Family; PCP Family Medicine
DX: R10.9 Unspecified abdominal pain (principal); Z53.21 Procedure and treatment not carried out due to patient leaving prior to being seen by health care provider; F17.210 Nicotine dependence, cigarettes, uncomplicated
CPT/HCPCS: 12345; 81001; 81003; 87086; 99282; 99283

== ENCOUNTER 2019-12-07 00:56 | Inpatient (IN) | payer MEDICAID, SELFPAY ==
[2019-12-07 01:08] VITALS: BP 123/85; PULSE 109; RESP 18; TEMP 36.4; O2SAT 97; BMI 28.1
--- NOTE | 2019-12-07 01:21 | ECG_ITS ---
[facility] Test Date: 2019-12-07 Pat Name: Mt Hawkins Department: Room: 153 Gender: Male Senior User Experience Architect: : 1965 Requested By: Gavi Angelo Order Number: [id number] Jeremiah MD: ARMOND SAUCEDA Measurements Intervals Hall Rate: 94 P: 88 AK: 127 QRS: 77 QRSD: 86 T: 88 QT: 344 QTc: 431 Interpretive Statements SINUS RHYTHM WITH OCCASIONAL SUPRAVENTRICULAR PREMATURE COMPLEXES Compared to ECG 09/06/2019 19:26:15 Myocardial infarct finding no longer present Electronically Signed On 12-07-2019 18:21:24 CDT by ARMOND SAUCEDA [id number]
--- NOTE | 2019-12-07 02:22 | W.ED.AMS ---
HPI - Altered Mental Status General: Chief Complaint: Altered Mental Status Stated Complaint: MHE Time Seen by Provider: 12/07/19 01:21 Source: patient Mode of arrival: ambulatory Limitations: no limitations History of Present Illness: HPI narrative: Yunior is a 54-year-old male well-known to me from previous visits. He comes in tonight stating that people are following him and are trying to kill him. He appears very paranoid. He states that he knows that this may not be real but at times he is having a hard time determining that. He states he needs to come into the hospital to get help. Patient does voiced threats that he may try to kill these people. He states he knows he needs to come in and get help. He denies any ingestions. He denies any suicidal ideation. Associated symptoms: Reports delusions Review of Systems Const: Denies: fever(s), chills, body aches, fatigue, malaise or diaphoresis Eyes: Denies: change in vision, blurry vision, photophobia, eye discomfort, eye discharge, eye redness or yellow eyes ENMT: Denies: throat pain, odynophagia, hoarseness, swelling of lips/tongue, ear or mastoid pain, ear discharge, change in hearing or nasal discharge Card: Denies: chest pain, palpitations, irregular heart rhythm, edema, lightheadedness, syncope, pre-syncope, dyspnea on exertion or orthopnea Resp: Denies: dyspnea, productive cough, non-productive cough, wheezing, hemoptysis or chest congestion GI: Denies: abdominal pain, nausea, vomiting, hematemesis, coffee ground emesis, heartburn, diarrhea, constipation, GI cramping, hematochezia or melena : Denies: flank pain, dysuria, urinary frequency, urinary urgency or hematuria Musc: Denies: neck pain, back pain, extremity pain, extremity swelling, joint pain, joint swelling, joint redness, joint warmth or joint stiffness Skin/Breast: Denies: rash, pruritus, erythema, skin pain or skin tenderness Neuro: Denies: headache(s), numbness in extremities, weakness in extremities, sensory changes, lack of coordination, difficulty walking, dizziness, vertigo, confusion, Slurred speech present or seizure-like activity Jordan/Lymph: Denies: easy bruising, easy bleeding, petechiae, purpura or enlarged lymph nodes All/Imm: Denies: urticaria, throat swelling, tongue swelling, facial swelling or acute wheezing PFSH ED PFSH: Medical History Sebaceous cyst Surgical History H/O circumcision History of back surgery History of foot surgery History of nasal surgery History of neck surgery x2 Family History Other Diabetes Denies family history of Anesthesia complication Bleeding disorder Cancer Social History Smoking and tobacco status: current every day smoker Alcohol intake: never Household members: significant other and other Details: Lives in his car, staying with a girl right now Marital status: Single Current occupational status: unemployed History of recent travel: No Physical Exam Const: COMMON NORMALS: no acute distress, patient oriented x3, no limitations and alert GENERAL APPEARANCE: cooperative HENMT: COMMON NORMALS: normocephalic, atraumatic, external ears normal, EAC's normal and Normal external nose present HEAD & SCALP: normal to inspection, normocephalic and atraumatic FACE & SINUS: normal facial exam and face symmetric NOSE: Normal external nose present and Normal nares present EXTERNAL EAR: Yes external ears normal EXTERNAL AUDITORY CANAL: EAC's normal MOUTH: Normal oral and palatal mucosa present, lip normal and tongue normal Eye: COMMON NORMALS: Equal, round and reactive pupils present and conjunctivae normal GENERAL EYE: appearance normal, both eyes and all related structures ALIGNMENT: Yes alignment normal PERIORBITAL: periorbital findings normal EYELID: eyelids normal CONJUNCTIVA: Yes conjunctivae normal SCLERA: sclerae normal PUPIL: Yes Equal, round and reactive pupils present Neck/C-Spine: COMMON NORMALS: full ROM, no lymphadenopathy, supple, no meningeal signs and no JVD GENERAL: Yes normal visual inspection and Yes trachea midline Chest: COMMONS NORMALS: normal inspection of the chest and normal palpation of entire chest wall Resp: COMMON NORMALS: normal respiratory effort, No retractions, No use of accessory muscles and clear to auscultation bilaterally EFFORT & INSPECTION: Yes able to speak in complete sentences and Yes symmetric chest movement AUSCULTATION: clear to auscultation bilaterally, no crackles, no rales, no rhonchi and no wheezes Cardio: COMMON NORMALS: no JVD, regular rate, regular rhythm, S1 normal heart sound present and S2 normal heart sound present RATE: regular rate RHYTHM: regular rhythm HEART SOUNDS: S1 normal heart sound present, S2 normal heart sound present, no click, no gallops, no murmurs and no rubs GI: COMMON NORMALS: Soft to palpation and No hepatosplenomegaly present PALPATION: Yes Soft to palpation, No Tenderness to palpation present (GI), No Guarding due to palpation present (GI), No Rigid due to palpation, Yes No hepatosplenomegaly present, No Hernia present, No Palpable mass present and No Pulsatile mass present : COMMON NORMALS: Yes no CVA tenderness BLADDER/KIDNEY EXAM: Yes no CVA tenderness Back/Pelvis: COMMON NORMALS: no CVA tenderness, thoracic and lumbar spine normal to inspection, no thoracic nor lumbar tenderness and thoraco-lumbar ROM normal Extremity: COMMON NORMALS: normal to inspection, full ROM, capillary refill normal, no joint enlargement, no clubbing, cyanosis or edema and no calf tenderness Neuro: COMMON NORMALS: patient oriented x3, CN's II-XII intact bilaterally, moves all extremities, no focal motor deficits and no sensory deficits noted SENSORIUM/ORIENTATION: Yes alert MENINGEAL SIGNS: Yes no meningeal signs SPEECH: speech normal Psych: COMMON NORMALS: denies suicidal ideation APPEARANCE: Yes unkempt ATTITUDE: Yes bizarre and Yes agitated ACTIVITY/MOTOR BEHAVIOR: Yes fidgeting, Yes hyperactivity and Yes restless SPEECH: Yes excessive, Yes rapid and Yes Pressured speech present MOOD & AFFECT: Yes anxious and Yes hostile affect THOUGHT PROCESS: disorganized and Flight of ideas present THOUGHT CONTENT: Yes Homicidality present and Yes delusions Skin: COMMON NORMALS: no rashes or lesions noted, turgor normal, no jaundice, no petechiae and no mottling GENERAL SKIN EXAM: no rashes or lesions noted and turgor normal Course Vital Signs: Vital signs: Vital Signs Temperature 97.5 F L 12/07/19 01:08 Pulse Rate 109 H 12/07/19 01:08 Respiratory Rate 18 12/07/19 01:08 Blood Pressure 123/85 12/07/19 01:08 Pulse Oximetry 97 12/07/19 01:08 MDM - Altered Mental Status MDM Narrative: Medical decision making narrative: The case was reviewed with Dr. Kendall, he agrees to admission to the neuropsychiatric unit. Currently the patient is voluntary and I have placed an affidavit on the chart. If he were to change his mind and try to leave I will place a 96-hour hold on him as I believe it is in his best interest. Lab Data: Attestation: I reviewed the patient's lab results. EKG Data^: EKG 1: Attestation: I personally reviewed and interpreted this EKG as follows: EKG interpretation date: 12/07/19 EKG interpretation time: 02:23 Interpretation: Normal sinus rhythm at 94 beats a minute, normal axis, no blocks, normal intervals, normal QTC. No acute ST or T wave changes. Discharge Plan Discharge Patient Disposition: Admitted As Inpatient Admit Provider: Wily Brown Clinical Impression: Acute paranoia, Homicidal ideation Condition: Stable Coding Level of Care Code ED Study Abroad Coordinator for Kaitlynn Wallace
[2019-12-07 02:39] LABS: Basophils # 0.1 10^3/uL (0.0-0.1); Basophils % 0.6 %; Eosinophils # 0.1 10^3/uL (0.0-0.8); Eosinophils % 1.6 %; Hemoglobin 13.7 g/dL (11.7-16.6); Lymphocytes # 1.9 10^3/uL (0.8-4.8); Lymphocytes % 22.6 %; Mean Corpuscular HGB Conc 33.4 g/dL (30.0-36.0); Mean Corpuscular Hemoglobin 30.1 pg (28.0-34.0); Mean Corpuscular Volume 90.1 fL (80-94); Mean Platelet Volume 11.8 fL (7.4-10.4); Monocytes # 0.8 10^3/uL (0.2-0.9); Monocytes % 9.7 %; Neutrophils # 5.49 10^3/uL (1.8-7.7); Neutrophils % 65.4 %; Nucleated Red Blood Cells % 0 %; Platelet Count 154 10^3/cmm (130-400); Red Blood Count 4.55 10^6/uL (4.1-5.3); Red Cell Distribution Width 14.1 % (12.1-15.1); White Blood Count 8.4 10^3/uL (4.0-10.0)
[2019-12-07 03:05] LABS: Alanine Aminotransferase 40 U/L (0-41); Albumin Level 4.7 g/dL (3.5-5.2); Alkaline Phosphatase 84 IU/L (40-130); Anion Gap 17.3 (5-19); Aspartate Amino Transferase 37 U/L (0-40); Blood Urea Nitrogen 25 mg/dL (6-20); Calcium 9.4 mg/dL (8.5-10.5); Carbon Dioxide 21 mmol/L (22-29); Chloride 104 mmol/L (98-107); Globulin 3.4 g/dL (1.3-4.6); Glomerular Filtration Rate 57.5 mL/min (90-130); Glucose 142 mg/dL (65-115); Osmolality Calculated 293 mOsm/kg (285-295); Potassium 4.3 mmol/L (3.5-5.1); Sodium 138 mmol/L (136-145); Thyroid Stimulating Hormone 1.72 uIU/mL (0.27-4.20); Total Bilirubin 0.8 mg/dL (0.15-1.2); Total Protein 8.1 g/dL (6.6-8.7)
[2019-12-07 03:13] LABS: Acetaminophen < 5.0 ug/mL (10-30); Alcohol Level < 10 mg/dL (0-10); Salicylate < 0.3 mg/dL (3-10)
[2019-12-07 03:15] LABS: Amphetamines Screen Urine Positive (Negative); Barbiturates Screen Urine Negative (Negative); Benzodiazepines Screen Urine Negative (Negative); Cocaine Screen Urine Negative (Negative); Opiate Screen Urine Negative (Negative); PCP Screen Urine Negative (Negative); THC Screen Urine Positive (Negative)
[2019-12-07 03:24] VITALS: BP 127/78; PULSE 93; RESP 18; O2SAT 96
[2019-12-07 03:35] VITALS: BP 145/89; PULSE 98; RESP 19; TEMP 36.9; O2SAT 98
--- NOTE | 2019-12-07 04:27 | PC.NURSE ---
PER ED ZHMYAL-89-mcil-old male well-known to me from previous visits. He comes in tonight stating that people are following him and are trying to kill him. He appears very paranoid. He states that he knows that this may not be real but at times he is having a hard time determining that. He states he needs to come into the hospital to get help. Patient does voiced threats that he may try to kill these people. He states he knows he needs to come in and get help. He denies any ingestions. He denies any suicidal ideation. . pt hostile on admit, he is extremely paranoid, upset with mother and sister for taking his money. Pt is aggressive. He is punching himself in the face, cursing about his situation, frustrated with living situation. stated that he has been to [facility] and used [facility]il[facility]. RD- security sales manager arrested him and felt that there was a conflict of interest between NILO and Su that used to manage here, this made him distrustful of the unit. pt is voluntary at this time,However, Dr Landers stated if he tried to leave that he would 96 this pt.
[2019-12-07 06:00] VITALS: BP 145/89; PULSE 98; RESP 19; TEMP 36.9; O2SAT 98
--- NOTE | 2019-12-07 10:23 | PC.NURSE ---
Patient behavior Patient pacing the halls and punching alexander, took shirt off and refuses to put it back on. Security, physician, limehouse worker notified.
--- NOTE | 2019-12-07 10:26 | PC.NURSE ---
DISRUPTIVE BEHAVIOR PT UP ON UNIT, THREW SHIRT OFF, REFUSED TO PUT SHIRT BACK ON, SECURITY NOTIFIED, PT PACING HALLWAYS, TOLD ANOTHER PT THAT STAFF WERE FIXING TO BE IN A LOT OF TROUBLE THREATENING MANNER. PRN MEDICATION OFFERED, PT FLIPPED STAFF OFF. CONT TO PACE UNIT AND PUNCH WALL AT RANDOM. PHYSICIAN NOTIFIED OF BEHAVIOR
--- NOTE | 2019-12-07 10:46 | P.SS_ITS ---
Short Stay Summary Providers Date of Admit/Discharge: 12/07/19 Attending Provider: Wily Brown MD Primary Care Provider: Elizabeth De Santiago DO Chief Complaint: MHE HPI History of Present Illness I just need to get to [place] so that I can take care of my personal affairs. Mt Hawkins is a 54 year old male well-known to this physician. As demonstrated by the emergency room note below, he presented in a paranoid state. He was positive for amphetamines. He has done this multiple times before. He becomes psychotic and fearful. However he is not an imminent danger to self or others. He presents today that he wants to be discharged. He does not feel that there is anything we can do for him. He needs to go to [place] where all of his affairs are centered. He has a place to stay there. He does claim that his and her friends and gave him tainted drugs several days ago. He says that he has thoughts that are not accurate and questions his reality testing. However, they are wearing off and he needs to take care of his affairs. Emergency room note: Yunior is a 54-year-old male well-known to me from previous visits. He comes in tonight stating that people are following him and are trying to kill him. He appears very paranoid. He states that he knows that this may not be real but at times he is having a hard time determining that. He states he needs to come into the hospital to get help. Patient does voiced threats that he may try to kill these people. He states he knows he needs to come in and get help. He denies any ingestions. He denies any suicidal ideation. Associated symptoms: Reports delusions Laboratory Tests 12/07/19 12/07/19 02:09 02:30 Urine Opiates Screen Negative Ur Barbiturates Screen Negative Ur Phencyclidine Scrn Negative Ur Amphetamines Screen Positive H U Benzodiazepines Scrn Negative Urine Cocaine Screen Negative U Marijuana (THC) Screen Positive H Ethyl Alcohol < 10 Home Meds/Allergies Home Medications and Allergies Allergies Allergy/AdvReac Type Severity Reaction Status Date / Time No Known Allergies Allergy Verified 11/01/19 16:46 PFSH Acute PFSH: Medical History Sebaceous cyst Surgical History H/O circumcision History of back surgery History of foot surgery History of nasal surgery History of neck surgery x2 Family History Other Diabetes Denies family history of Anesthesia complication Bleeding disorder Cancer Social History Smoking and tobacco status: current every day smoker Alcohol intake: never Household members: significant other and other Details: Lives in his car, s magalie with a girl right now Marital status: Single Current occupational status: unemployed History of recent travel: No Vitals/I&O/Wt Last Vital Signs Temp 98.4 F 12/07/19 06:00 Pulse 98 12/07/19 06:00 Resp 19 H 12/07/19 06:00 BP 145/89 12/07/19 06:00 Pulse Ox 98 12/07/19 06:00 Weight last 48 hrs Weight 81.647 kg Physical Exam Narrative: EXAM NARRATIVE: Discharge Mental Status Exam: The patient is an alert interpersonally engaged male appearing approximately his stated age. He supports a wide variety of tattoos but none look different from those observed from him since our last meeting. Eye contact is good. His attitude is mildly confrontational to the extent that he would like his desires met. Appearance: hygiene is good; no gross neurological deficits., gait is unremarkable; AIMS=0 Speech: Speech is of normal rate and rhythm and easily understood. Thought processes: Thought processes are abstract. Judgment is adequate for safety. Associations: intact Psychotic processes: He expresses paranoid ideation regarding his and the drugs she has given him. However he expresses no global paranoid delusions in general fearfulness. There is no attention to the internal stimuli. Auditory and visual hallucinations are denied. Judgment: Insight is fair. Problem solving skills are poor but adequate for safety. Orientation: The patient is oriented to person, place time and situation. Memory: no deficits noted in immediate, intermediate, or remote spheres. Attention: The patient is alert and interpersonally engaged. Language: Verbalizations are coherent. Fund of knowledge: Fund of knowledge is poor but adequate. Affect/Mood: Affect is irritable with a euthymic mood. denied suicidal ideation Affective range is appropriate. Psychosis: perception impaired through cognitive distortion; reality testing intact. Hospital Course Hospital Course: The patient was admitted to the adult psychiatric unit and entered into the form of individual and group therapies as part of the unit protocol. They were provided 24-hour access to medication supervision and therapeutic activities by trained psychiatric nursing. The patient was offered medication that had been helpful for him in the past but he refused. The day following admission, he became agitated and did not feel that the hospital could do anything that was of benefit to him. I discussed with him his history of coming into the hospital previously with the same idea and leaving suddenly versus remaining here a few days and getting nutrition and sleep. That has been helpful for him in the past. However he refused. He continued to demand to be allowed to leave AGAINST MEDICAL ADVICE and be transported to [place]. It was discovered that the hospital is willing to do that. His desires were granted. Discharge Plan Discharge Patient Disposition: Left Against Medical Advice Condition: Stable Prescriptions: No Action naproxen [Naprosyn] 500 mg tablet 500 mg PO TID PRN (Reason: pain) Qty: 14 RF: 0 Discharge Date/Time: 12/07/19 10:51 Attestations Medical Necessity Statement*: Patient is discharged AGAINST MEDICAL ADVICE Time Spent in Patient Care*: greater than 30 min Quality Metrics Clinical Quality Measures: During this hospital stay, did patient experience: None Coding Level of Care Code Acute Storm Door Maker for Kaitlynn Wallace
--- NOTE | 2019-12-07 10:48 | PC.NURSE ---
PT LEFT AMA. PAPERWORK FILLED OUT & PHYSICIAN NOTIFIED. PT AMBULATED OFF UNIT WITH ALL PERSONAL BELONGINGS.
[2019-12-07 10:50] VITALS: BP 145/89; PULSE 98; RESP 19; TEMP 36.9; O2SAT 98
--- NOTE | 2019-12-07 16:51 | PC.RESP ---
Smoking Cessation sent to patient.
== END 2019-12-07 10:51 | disposition left against medical advice (07) | DRG 885 ==
LOC: ER 01:21 → NP 02:35
PROVIDERS: Emergency Medicine; Admitting Provider Psychiatry & Neurology Psychiatry; PCP Family Medicine; Visit Provider Psychiatry & Neurology Psychiatry
DX: F22 Delusional disorders (principal); F17.210 Nicotine dependence, cigarettes, uncomplicated; Z53.29 Procedure and treatment not carried out because of patient's decision for other reasons; F15.90 Other stimulant use, unspecified, uncomplicated
CPT/HCPCS: 12345; 80053; 80306; 80307; 84443; 85025; 93005; 99283

== ENCOUNTER 2020-05-21 01:38 | Emergency (ER) | payer MEDICAID, SELFPAY ==
[2020-05-21 01:43] VITALS: BP 119/89; PULSE 92; RESP 17; TEMP 36.4; O2SAT 99; BMI 27.3
--- NOTE | 2020-05-21 01:47 | W.ED.GENADLT ---
HPI - General Adult General: Chief complaint: General Medical Stated complaint: PAIN IN BOTH FEET Time Seen by Provider: 05/21/20 01:39 History of Present Illness: HPI narrative: Patient is a 54-year-old male comes to the ED with bilateral foot pain and blisters. Patient is homeless and says he does not have anywhere to go and would just like to rest and soak his feet for a while. Denies any acute trauma or injury to feet. Associated symptoms: Deny chest pain, dyspnea, headache(s), nausea, rash, palpitations or vomiting Review of Systems Const: Denies: fever(s), chills or fatigue Eyes: Denies: change in vision or eye discomfort ENMT: Denies: throat pain, odynophagia, nasal discharge or nasal congestion Card: Denies: chest pain, palpitations, edema, swelling of feet/ankles, dyspnea on exertion or orthopnea Resp: Denies: dyspnea, productive cough or non-productive cough GI: Denies: abdominal pain, nausea, vomiting, diarrhea, constipation or hematochezia : Denies: flank pain, difficulty urinating, dysuria or hematuria Musc: Reports: extremity pain (Bilateral foot pain); Denies: neck pain, back pain or extremity swelling Skin/Breast: Denies: rash or new lesions Neuro: Denies: headache(s), numbness in extremities or weakness in extremities PFS ED PFSH: Medical History Sebaceous cyst Surgical History H/O circumcision History of back surgery History of foot surgery History of nasal surgery History of neck surgery x2 Family History Other Diabetes Denies family history of Anesthesia complication Bleeding disorder Cancer Social History Smoking and tobacco status: current every day smoker Alcohol intake: never Household members: significant other and other Details: Lives in his car, staying with a girl right now Marital status: Single Current occupational status: unemployed History of recent travel: No Physical Exam Const: COMMON NORMALS: no acute distress, patient oriented x3 and alert GENERAL APPEARANCE: cooperative and comfortable HENMT: COMMON NORMALS: normocephalic HEAD & SCALP: normocephalic MOUTH: Normal oral and palatal mucosa present THROAT: posterior oropharynx normal and uvula midline Neck/C-Spine: COMMON NORMALS: supple GENERAL: Yes normal visual inspection Resp: COMMON NORMALS: normal respiratory effort, No retractions, No use of accessory muscles and clear to auscultation bilaterally AUSCULTATION: clear to auscultation bilaterally Cardio: COMMON NORMALS: regular rate, regular rhythm, S1 normal heart sound present, S2 normal heart sound present, No gallops present (Cardio), No clicks present (Cardio), No murmurs present (Cardio) and Peripheral pulses 2+ throughout RATE: regular rate RHYTHM: regular rhythm HEART SOUNDS: S1 normal heart sound present and S2 normal heart sound present PERIPHERAL PULSES: Peripheral pulses 2+ throughout GI: COMMON NORMALS: Normal to inspection, nondistended, normoactive bowel sounds present, Soft to palpation, non-tender and no masses PALPATION: Yes Soft to palpation : COMMON NORMALS: Yes no CVA tenderness BLADDER/KIDNEY EXAM: Yes no CVA tenderness Back/Pelvis: COMMON NORMALS: no CVA tenderness Extremity: NARRATIVE EXTREMITY EXAM: Patient has friction blisters on his first and fifth digit of both right and left foot. GENERAL: Yes normal exam except as noted Neuro: COMMON NORMALS: patient oriented x3 and moves all extremities SENSORIUM/ORIENTATION: Yes alert Skin: NARRATIVE SKIN EXAM: Friction blisters on right and left feet. GENERAL SKIN EXAM: dry skin Course Vital Signs: Vital signs: Vital Signs Temperature 97.5 F L 05/21/20 01:43 Pulse Rate 92 05/21/20 01:43 Respiratory Rate 17 05/21/20 01:43 Blood Pressure 119/89 05/21/20 01:43 Pulse Oximetry 99 05/21/20 01:43 MDM - General Adult MDM Narrative: Medical decision making narrative: Patient is a 54-year-old male comes to the ED with bilateral foot pain. He denies any trauma or injury. Patient is homeless and says he just wants to come here rest and soak his feet in some water for a while. Exam shows some friction blisters on both right and left feet. No other acute findings. Patient diagnosed with friction blisters of lower extremity and bilateral foot pain and discharged home. He was told to rest ice and elevate feet. Return to ED precautions given. Patient understood agree with plan. Discharge Plan Discharge Patient Disposition: Home Clinical Impression: Bilateral foot pain Friction blister of lower extremity Qualifiers: Encounter type: initial encounter Laterality: unspecified laterality Qualified Code(s): S80.829A - Blister (nonthermal), unspecified lower leg, initial encounter Condition: Stable Prescriptions: No Action naproxen [Naprosyn] 500 mg tablet 500 mg PO TID PRN (Reason: pain) Qty: 14 RF: 0 Discharge Orders: Discharge ED (Routine); Ordered 05/21/20 Ordered By: José Manuel Posey Referrals: Elizabeth De Santiago DO [Primary Care Provider] - Discharge Diet: Regular Discharge Activity: Increase activity as tolerated Patient Instructions: Skin Blisters Activity Restrictions/Additional Instructions: Follow-up with medical provider as directed. Rest ice and elevate feet to help with symptoms. Return to the ER or your medical provider if condition worsens. Please read and understand discharge instructions. If any questions, please ask. Coding Level of Care Code ED Telehealth Coordinator for Kaitlynn Fwpalak Exam Comprehensive
[2020-05-21] MEDS: neomycin-poly-bacitracin oint 28 gm 1 APPLIC TOPICAL (02:03)
--- NOTE | 2020-05-21 02:11 | PC.NURSE ---
during dc instructions, pt stated whoa, you are supposed to soak my feet before I leave . When pt was informed there are no such orders, pt stated You need to call security because that man just lied to me. I wouldn't have taken my clothes off. Pt also stated he was given permission to sleep a couple of hours here Practioner called to verify orders. No such orders for feet soaking or sleeping in the ED were given. Security called. Pt left ED
== END 2020-05-21 02:00 | disposition home or self-care (01) ==
PROVIDERS: Emergency Provider Physician Assistant; PCP Family Medicine
DX: S90.822A Blister (nonthermal), left foot, initial encounter (principal); S90.821A Blister (nonthermal), right foot, initial encounter; X58.XXXA Exposure to other specified factors, initial encounter; Z59.0 Homelessness; M79.672 Pain in left foot; M79.671 Pain in right foot; F17.210 Nicotine dependence, cigarettes, uncomplicated
CPT/HCPCS: 99281

== ENCOUNTER 2020-05-23 04:27 | Emergency (ER) | payer MEDICAID, SELFPAY ==
[2020-05-23 04:34] VITALS: BP 121/84; PULSE 71; RESP 16; TEMP 36.7; O2SAT 92; BMI 27.3
--- NOTE | 2020-05-23 04:41 | ED_ITS ---
HPI - Psych General: Chief Complaint: Psychiatric Symptoms Stated Complaint: MHE, stress unit Time Seen by Provider: 05/23/20 04:29 Source: patient Mode of arrival: ambulatory Limitations: no limitations History of Present Illness: HPI Narrative: 54-year-old male is well-known to the ER. Patient is homeless states tell me that he has been getting cold the night wants a place to stay. He is asking me if he can be admitted to the psychiatric unit for 2 to 3 days to rest. I asked him if he is suicidal homicidal he goes yes if that is what I have to say to get admitted. He denies any worsening or improving factors. He has no specific plan. Associated symptoms: Reports depression and suicidal ideation Review of Systems Const: Denies: fever(s), chills, body aches or change in appetite Eyes: Denies: blurry vision or eye discomfort ENMT: Denies: throat pain or dental pain Card: Denies: chest pain Resp: Denies: dyspnea GI: Denies: abdominal pain : Denies: dysuria Musc: Denies: neck pain or back pain Skin/Breast: Denies: rash Neuro: Denies: headache(s) Psych: Reports: depression and suicidal ideation Jordan/Lymph: Denies: easy bruising All/Imm: Denies: urticaria PFSH ED PFSH: Medical History (Updated 05/23/20 @ 04:55 by Mariajose Serrano MD) Sebaceous cyst Surgical History H/O circumcision History of back surgery History of foot surgery History of nasal surgery History of neck surgery x2 Family History Other Diabetes Denies family history of Anesthesia complication Bleeding disorder Cancer Social History Smoking and tobacco status: current every day smoker Alcohol intake: never Household members: significant other and other Details: Lives in his car, staying with a girl right now Marital status: Single Current occupational status: unemployed History of recent travel: No Physical Exam Const: COMMON NORMALS: no acute distress, patient oriented x3 and healthy appearing HENMT: COMMON NORMALS: normocephalic and atraumatic HEAD & SCALP: normocephalic and atraumatic Eye: COMMON NORMALS: Equal, round and reactive pupils present and EOMs intact bilaterally PUPIL: Yes Equal, round and reactive pupils present Neck/C-Spine: COMMON NORMALS: full ROM and supple Chest: COMMONS NORMALS: normal inspection of the chest and normal palpation of entire chest wall Resp: COMMON NORMALS: normal respiratory effort, No retractions, No use of accessory muscles and clear to auscultation bilaterally AUSCULTATION: clear to auscultation bilaterally Cardio: COMMON NORMALS: regular rate, regular rhythm and No murmurs present (Cardio) RATE: regular rate RHYTHM: regular rhythm GI: COMMON NORMALS: Normal to inspection, nondistended, normoactive bowel sounds present, Soft to palpation, non-tender and no masses PALPATION: Yes Soft to palpation Extremity: COMMON NORMALS: normal to inspection and full ROM Neuro: COMMON NORMALS: patient oriented x3, moves all extremities and no focal motor deficits Psych: COMMON NORMALS: mental status grossly normal, Normal thought process present and cooperative THOUGHT PROCESS: Normal thought process present Skin: COMMON NORMALS: no rashes or lesions noted and no wounds GENERAL SKIN EXAM: no rashes or lesions noted MDM - Psych MDM Narrative: Medical decision making narrative: Patient presents with depression along with homelessness. Patient has been seen here multiple times in the past admitted to the psych manning multiple times. I had Dr. Kendall do a telepsychiatric evaluation. Spoke to Dr. Kendall and he does not believe that he is actively suicidal or homicidal and he recommended discharge. I agree with him as well as I do not believe patient is a threat to himself or others at this time. He stable for discharge return if worsening. Discharge Plan Discharge Patient Disposition: Home Clinical Impression: Depression Qualifiers: Depression Type: unspecified Qualified Code(s): F32.9 - Major depressive dis order, single episode, unspecified Condition: Stable Prescriptions: No Action naproxen [Naprosyn] 500 mg tablet 500 mg PO TID PRN (Reason: pain) Qty: 14 RF: 0 Discharge Orders: Discharge ED (Routine); Ordered 05/23/20 Ordered By: Mariajose Serrano Referrals: Elizabeth De Santiago DO [Primary Care Provider] - 1-3 days Discharge Diet: Advance as tolerated Discharge Activity: Resume usual activity Patient Instructions: Depression (ED) Coding Level of Care Code ED Dealer Development Manager for g Fwd Exam Comprehensive
[2020-05-23 05:02] VITALS: PULSE 88; RESP 18; O2SAT 98
== END 2020-05-23 05:05 | disposition home or self-care (01) ==
PROVIDERS: Emergency Provider Emergency Medicine; PCP Family Medicine
DX: F32.9 Major depressive disorder, single episode, unspecified (principal); Z59.0 Homelessness; F17.210 Nicotine dependence, cigarettes, uncomplicated
CPT/HCPCS: 99281

== ENCOUNTER 2020-05-26 00:27 | Emergency (ER) | payer MEDICAID, SELFPAY ==
[2020-05-26 00:35] VITALS: BP 147/84; PULSE 92; RESP 18; TEMP 37; O2SAT 96; BMI 26.6
--- NOTE | 2020-05-26 00:40 | W.ED.HA ---
HPI - Headache General: Chief Complaint: Headache Stated Complaint: MIGRAINE Time Seen by Provider: 05/26/20 00:28 Source: patient Mode of arrival: ambulatory Limitations: no limitations History of Present Illness: HPI Narrative: 54-year-old male who states he has had a migraine headache that started earlier today. He states he has a long history of migraines and states his pain is a 5 out of 10. He has photophobia and phonophobia. Denies any vomiting or diarrhea. Denies any fevers. Associated symptoms: Deny chest pain, fever(s), nausea, rash or vomiting Review of Systems Const: Denies: fever(s), chills, body aches or change in appetite Eyes: Denies: blurry vision or eye discomfort ENMT: Denies: throat pain or dental pain Card: Denies: chest pain Resp: Denies: dyspnea GI: Denies: abdominal pain, nausea, vomiting or diarrhea : Denies: dysuria Musc: Denies: neck pain or back pain Skin/Breast: Denies: rash Neuro: Reports: headache(s) Psych: Denies: depression Jordan/Lymph: Denies: easy bruising All/Imm: Denies: urticaria PFSH ED PFSH: Medical History (Updated 05/26/20 @ 00:40 by Mariajose Serrano MD) Sebaceous cyst Surgical History H/O circumcision History of back surgery History of foot surgery History of nasal surgery History of neck surgery x2 Family History Other Diabetes Denies family history of Anesthesia complication Bleeding disorder Cancer Social History Smoking and tobacco status: current every day smoker Alcohol intake: never Household members: significant other and other Details: Lives in his car, staying with a girl right now Marital status: Single Current occupational status: unemployed History of recent travel: No Physical Exam Const: COMMON NORMALS: no acute distress, patient oriented x3 and healthy appearing HENMT: COMMON NORMALS: normocephalic and atraumatic HEAD & SCALP: normocephalic and atraumatic Eye: COMMON NORMALS: Equal, round and reactive pupils present and EOMs intact bilaterally PUPIL: Yes Equal, round and reactive pupils present Neck/C-Spine: COMMON NORMALS: full ROM and supple Chest: COMMONS NORMALS: normal inspection of the chest and normal palpation of entire chest wall Resp: COMMON NORMALS: normal respiratory effort, No retractions, No use of accessory muscles and clear to auscultation bilaterally AUSCULTATION: clear to auscultation bilaterally Cardio: COMMON NORMALS: regular rate, regular rhythm and No murmurs present (Cardio) RATE: regular rate RHYTHM: regular rhythm GI: COMMON NORMALS: Normal to inspection, nondistended, normoactive bowel sounds present, Soft to palpation, non-tender and no masses PALPATION: Yes Soft to palpation Extremity: COMMON NORMALS: normal to inspection and full ROM Neuro: COMMON NORMALS: patient oriented x3, moves all extremities and no focal motor deficits Psych: COMMON NORMALS: mental status grossly normal, Normal thought process present and cooperative THOUGHT PROCESS: Normal thought process present Skin: COMMON NORMALS: no rashes or lesions noted and no wounds GENERAL SKIN EXAM: no rashes or lesions noted Course Vital Signs: Vital signs: Vital Signs Temperature 98.6 F 05/26/20 00:35 Pulse Rate 92 05/26/20 00:35 Respiratory Rate 18 05/26/20 00:35 Blood Pressure 147/84 05/26/20 00:35 Pulse Oximetry 96 05/26/20 00:35 MDM - Headache MDM Narrative: Medical decision making narrative: Patient presents here with headache and has a history of migraine headaches. He has no signs of subarachnoid hemorrhage or meningitis. Patient is well-appearing here and stable for discharge. Discharge Plan Discharge Patient Disposition: Home Clinical Impression: Headache Qualifiers: Headache type: unspecified Headache chronicity pattern: unspecified pattern Intractability: not intractable Qualified Code(s): R51.9 - Headache, unspecified Condition: Stable Prescriptions: No Action naproxen [Naprosyn] 500 mg tablet 500 mg PO TID PRN (Reason: pain) Qty: 14 RF: 0 Discharge Orders: Discharge ED (Routine); Ordered 05/26/20 Ordered By: Mariajose Serrano Referrals: lEizabeth De Santiago DO [Primary Care Provider] - 1-3 days Discharge Diet: Advance as tolerated Discharge Activity: Resume usual activity Patient Instructions: Migraine Headache (ED) Coding Level of Care Code ED Oversize Load Pilot Escort for Chg Rodrigo
[2020-05-26] MEDS: naproxen 500 mg Tablet PO (00:52)
[2020-05-26] MEDS: diphenhydrAMINE 50 mg Capsule PO (00:52)
== END 2020-05-26 00:55 | disposition home or self-care (01) ==
LOC: ER 00:59
PROVIDERS: Emergency Provider Emergency Medicine; PCP Family Medicine
DX: R51.9 Headache, unspecified (principal); F17.210 Nicotine dependence, cigarettes, uncomplicated
CPT/HCPCS: 99283; Q0163

== ENCOUNTER 2020-05-26 21:56 | Emergency (ER) | payer MEDICAID, SELFPAY ==
[2020-05-26 22:07] VITALS: BP 154/84; PULSE 96; RESP 18; TEMP 36.9; O2SAT 99; BMI 26.6
--- NOTE | 2020-05-26 22:36 | W.ED.EXTPRO ---
HPI - Extremity Problem General: Chief complaint: Extremity Problem,Nontraumatic Stated complaint: CHECKING IN AGAIN - STILL FOR BILATERAL FEET PAIN Time Seen by Provider: 05/26/20 22:18 Source: patient Mode of arrival: ambulatory Limitations: no limitations History of Present Illness: HPI Narrative: 54-year-old male patient presents to the emergency department with bilateral feet pain. He reports is homeless, he states walks a lot, living [place] a bridge, not able to live in the homeless longterm due to previous issues. He reports does not have a place to live at this time. He denies suicidal or homicidal ideation plans or thoughts. He reports blisters on his feet are hurting him and is wanting to soak his feet. He denies fever chills, trauma or injury. MD Complaint: extremity pain and extremity swelling Location: left, right and lower extremity Quality: aching Relieving factors: rest Exacerbating factors: weight bearing and walking Associated symptoms: Reports no associated symptoms; Deny chest pain, fever(s) or rash Review of Systems General: Reports: 10 or more systems reviewed and unremarkable except in HPI and below Const: Denies: fever(s), chills or diaphoresis Eyes: Denies: blurry vision or eye redness ENMT: Denies: throat pain, dental pain or disequilibrium Card: Denies: chest pain, palpitations or irregular heart rhythm Resp: Denies: dyspnea, productive cough, non-productive cough or wheezing GI: Denies: abdominal pain, nausea or vomiting : Denies: dysuria Musc: Denies: neck pain or back pain Skin/Breast: Denies: rash or pruritus Neuro: Denies: headache(s), weakness in extremities or behavioral changes Psych: Denies: anxiety or depression Jordan/Lymph: Denies: easy bruising PFS ED PFSH: Medical History (Updated 05/26/20 @ 22:45 by AISHA Menon) Sebaceous cyst Surgical History H/O circumcision History of back surgery History of foot surgery History of nasal surgery History of neck surgery x2 Family History Other Diabetes Denies family history of Anesthesia complication Bleeding disorder Cancer Social History Smoking and tobacco status: current every day smoker Alcohol intake: never Household members: significant other and other Details: Lives in his car, staying with a girl right now Marital status: Single Current occupational status: unemployed History of recent travel: No Physical Exam Const: COMMON NORMALS: no acute distress, patient oriented x3, healthy appearing, alert and well nourished GENERAL APPEARANCE: cooperative, comfortable, well kempt, well developed and well hydrated; not anxious NUTRITIONAL APPEARANCE: thin ORIENTATION/CONSCIOUSNESS: Yes awake, Yes oriented to person, Yes oriented to place and Yes oriented to time HENMT: COMMON NORMALS: normocephalic and atraumatic HEAD & SCALP: normocephalic and atraumatic FACE & SINUS: normal facial exam and face symmetric Eye: COMMON NORMALS: Equal, round and reactive pupils present and EOMs intact bilaterally GENERAL EYE: appearance normal, both eyes and all related structures PUPIL: Yes Equal, round and reactive pupils present Neck/C-Spine: CERVICAL SPINE: Yes cervical ROM normal Resp: COMMON NORMALS: normal respiratory effort and clear to auscultation bilaterally AUSCULTATION: clear to auscultation bilaterally Cardio: COMMON NORMALS: regular rhythm, S1 normal heart sound present and S2 normal heart sound present RHYTHM: regular rhythm HEART SOUNDS: S1 normal heart sound present and S2 normal heart sound present Back/Pelvis: COMMON NORMALS: thoracic and lumbar spine normal to inspection Extremity: COMMON NORMALS: normal to inspection, full ROM, capillary refill normal, no clubbing, cyanosis or edema, no calf tenderness and no pedal edema GENERAL: Yes normal exam except as noted Neuro: COMMON NORMALS: patient oriented x3 and no focal motor deficits SENSORIUM/ORIENTATION: Yes alert, Yes oriented to person, Yes oriented to place and Yes oriented to time Psych: COMMON NORMALS: mental status grossly normal, Normal thought process present and cooperative APPEARANCE: Yes well kempt ACTIVITY/MOTOR BEHAVIOR: Yes appropriate eye contact THOUGHT PROCESS: Normal thought process present Skin: COMMON NORMALS: no rashes or lesions noted, turgor normal, no petechiae and no mottling GENERAL SKIN EXAM: no rashes or lesions noted, elasticity normal and turgor normal WOUNDS: Yes wounds noted (rt Skin avulsion, from blistering to the plantar distal foot.) size, without odor and other (no erythema) HAIR: normal Course Vital Signs: Vital signs: Vital Signs Temperature 98.5 F 05/26/20 22:07 Pulse Rate 96 05/26/20 22:07 Respiratory Rate 18 05/26/20 22:07 Blood Pressure 154/84 05/26/20 22:07 Pulse Oximetry 99 05/26/20 22:07 Discharge Plan Discharge Patient Disposition: Home Clinical Impression: Blister of foot without infection Qualifiers: Encounter type: initial encounter Laterality: right Qualified Code(s): S90.821A - Blister (nonthermal), right foot, initial encounter Condition: Stable Prescriptions: New IBU 600 mg tablet 600 mg PO TID PRN (Reason: pain) Qty: 20 RF: 0 Discontinued naproxen [Naprosyn] 500 mg tablet 500 mg PO TID PRN (Reason: pain) Qty: 14 RF: 0 Discharge Orders: Discharge ED (Routine); Ordered 05/26/20 Ordered By: Yanci Whitehead Discharge Diet: Usual diet Discharge Activity: Limit activity as instructed Patient Instructions: How to Give a Foot Massage (GEN), Blister (ED), Opioid Safety Activity Restrictions/Additional Instructions: Keep the feet elevated, take shoes off to let feet dry and air Keep the feet elevated to help with pain Take ibuprofen with food to avoid upset stomach Soak feet in clean water and gently wash with soap, do not place wet feet in your shoes, make sure your feet are completely dry when wearing shoes. Coding Level of Care Code ED Housekeeping Room Attendant for Kaitlynn Fwd Exam Comprehensive
[2020-05-26] MEDS: mupirocin oint 22 gm 1 APPLIC TOPICAL (22:49)
[2020-05-26] MEDS: ibuprofen 600 mg Tablet PO (22:49)
== END 2020-05-26 23:25 | disposition home or self-care (01) ==
PROVIDERS: Emergency Provider Nurse Practitioner Family
DX: S90.821A Blister (nonthermal), right foot, initial encounter (principal); X58.XXXA Exposure to other specified factors, initial encounter; Z59.0 Homelessness; F17.210 Nicotine dependence, cigarettes, uncomplicated
CPT/HCPCS: 99282

== ENCOUNTER 2020-06-02 15:50 | Emergency (ER) | payer MEDICAID, SELFPAY ==
[2020-06-02 15:52] VITALS: BP 140/97; PULSE 105; RESP 18; TEMP 36.6; O2SAT 99; BMI 26.6
--- NOTE | 2020-06-02 18:31 | ED_ITS ---
HPI - Headache General: Chief Complaint: Headache Stated Complaint: Severe Headache Time Seen by Provider: 06/02/20 18:18 Source: patient Mode of arrival: ambulatory Limitations: no limitations History of Present Illness: HPI Narrative: 54-year-old male who is very well- known to the ER has a long history of migraines. States had a migraine today along with some pain over his maxillary sinuses with nasal drainage. He states his pain is a 7 out of 10 does have photophobia and phonophobia. Denies any vomiting or diarrhea. Denies any fevers. MD elicited complaint: headache Associated symptoms: Deny chest pain, fever(s), nausea, rash or vomiting Review of Systems Const: Denies: fever(s), chills, body aches or change in appetite Eyes: Denies: blurry vision or eye discomfort ENMT: Denies: throat pain or dental pain Card: Denies: chest pain Resp: Denies: dyspnea GI: Denies: abdominal pain, nausea, vomiting or diarrhea : Denies: dysuria Musc: Denies: neck pain or back pain Skin/Breast: Denies: rash Neuro: Reports: headache(s) Psych: Denies: depression Jordan/Lymph: Denies: easy bruising All/Imm: Denies: urticaria PFSH ED PFSH: Medical History (Updated 06/02/20 @ 18:27 by Mariajose Serrano MD) Sebaceous cyst Surgical History H/O circumcision History of back surgery History of foot surgery History of nasal surgery History of neck surgery x2 Family History Other Diabetes Denies family history of Anesthesia complication Bleeding disorder Cancer Social History Smoking and tobacco status: current every day smoker Alcohol intake: never Household members: significant other and other Details: Lives in his car, staying with a girl right now Marital status: Single Current occupational status: unemployed History of recent travel: No Physical Exam Const: COMMON NORMALS: no acute distress, patient oriented x3 and healthy appearing HENMT: COMMON NORMALS: normocephalic and atraumatic HEAD & SCALP: normocephalic and atraumatic Eye: COMMON NORMALS: Equal, round and reactive pupils present and EOMs intact bilaterally PUPIL: Yes Equal, round and reactive pupils present Neck/C-Spine: COMMON NORMALS: full ROM and supple Chest: COMMONS NORMALS: normal inspection of the chest and normal palpation of entire chest wall Resp: COMMON NORMALS: normal respiratory effort, No retractions, No use of accessory muscles and clear to auscultation bilaterally AUSCULTATION: clear to auscultation bilaterally Cardio: COMMON NORMALS: regular rate, regular rhythm and No murmurs present (Cardio) RATE: regular rate RHYTHM: regular rhythm GI: COMMON NORMALS: Normal to inspection, nondistended, normoactive bowel sounds present, Soft to palpation, non-tender and no masses PALPATION: Yes Soft to palpation Extremity: COMMON NORMALS: normal to inspection and full ROM Neuro: COMMON NORMALS: patient oriented x3, moves all extremities and no focal motor deficits Psych: COMMON NORMALS: mental status grossly normal, Normal thought process present and cooperative THOUGHT PROCESS: Normal thought process present Skin: COMMON NORMALS: no rashes or lesions noted and no wounds GENERAL SKIN EXAM: no rashes or lesions noted Course Vital Signs: Vital signs: Vital Signs Temperature 97.9 F 06/02/20 15:52 Pulse Rate 105 H 06/02/20 15:52 Respiratory Rate 18 06/02/20 15:52 Blood Pressure 140/97 06/02/20 15:52 Pulse Oximetry 99 06/02/20 15:52 MDM - Headache MDM Narrative: Medical decision making narrative: Patient presents here with headache is likely a migraine headache along with a sinus infection. He has no signs of meningitis or subarachnoid hemorrhage. Patient given Toradol will prescribe him Keflex. He is stable for discharge. Discharge Plan Discharge Patient Disposition: Home Clinical Impression: Sinusitis Headache Qualifiers: Headache type: unspecified Headache chronicity pattern: unspecified pattern Intractability: not intractable Qualified Code(s): R51.9 - Headache, unspecified Condition: Stable Prescriptions: New cephalexin 500 mg capsule 500 mg PO TID 7 Days Qty: 21 RF: 0 No Action IBU 600 mg tablet 600 mg PO TID PRN (Reason: pain) Qty: 20 RF: 0 Discharge Orders: Discharge ED (Routine); Ordered 06/02/20 Ordered By: Mariajose Serrano Discharge Diet: Advance as tolerated Discharge Activity: Resume usual activity Patient Instructions: Sinusitis (ED) Coding Level of Care Code ED Manager Regulatory for Kaitlynn Wallace
[2020-06-02] MEDS: ketorolac 30 mg/mL INJ IM (18:42)
[2020-06-02] MEDS: dexamethasone 10 mg/mL INJ IM (18:42)
== END 2020-06-02 18:42 | disposition home or self-care (01) ==
PROVIDERS: Emergency Provider Emergency Medicine
DX: R51.9 Headache, unspecified (principal); J32.9 Chronic sinusitis, unspecified; F17.210 Nicotine dependence, cigarettes, uncomplicated
CPT/HCPCS: 96372; 99283; J1100; J1885

== ENCOUNTER 2020-06-08 20:41 | Emergency (ER) | payer MEDICAID, SELFPAY ==
[2020-06-08 20:46] VITALS: BP 123/67; PULSE 96; RESP 18; TEMP 36.2; O2SAT 98
--- NOTE | 2020-06-08 21:00 | ED_ITS ---
HPI - Extremity Problem General: Chief complaint: Extremity Problem,Nontraumatic Stated complaint: FOOT PAIN Time Seen by Provider: 06/08/20 20:47 History of Present Illness: HPI Narrative: 54-year-old male presenting with bilateral foot pain. He is homeless, walks everywhere he goes, and has pain from blistering on his feet. He is lost the nails of both small toes. He complains of pain related to the blisters as well as a deeper pain related to walking. He notes that he has a place to stay tonight, and soak his feet as well as sleep. He denies any fever. He denies any psychiatric complaints. MD Complaint: extremity pain Pain Consistency: constant Location: left, right and lower extremity (Feet) Quality: burning and aching Relieving factors: cold therapy and elevation Exacerbating factors: walking Associated symptoms: Deny chest pain or fever(s) Review of Systems Const: Denies: fever(s) or chills Card: Denies: chest pain Resp: Denies: dyspnea or productive cough GI: Denies: abdominal pain or vomiting Neuro: Denies: headache(s) Psych: Denies: suicidal ideation or homicidal ideation [facility] ED PFSH: Medical History (Updated 06/08/20 @ 21:05 by Brent Workman DO) Sebaceous cyst Surgical History H/O circumcision History of back surgery History of foot surgery History of nasal surgery History of neck surgery x2 Family History Other Diabetes Denies family history of Anesthesia complication Bleeding disorder Cancer Social History Smoking and tobacco status: current every day smoker Alcohol intake: never Household members: significant other and other Details: Lives in his car, staying with a girl right now Marital status: Single Current occupational status: unemployed History of recent travel: No Physical Exam Const: GENERAL APPEARANCE: well developed ORIENTATION/CONSCIOUSNESS: Yes oriented to person, Yes oriented to place and Yes oriented to time HENMT: COMMON NORMALS: normocephalic and Normal external nose present HEAD & SCALP: normocephalic FACE & SINUS: normal facial exam NOSE: Normal external nose present and No nasal discharge present Eye: COMMON NORMALS: EOMs intact bilaterally EYELID: eyelids normal Neck/C-Spine: GENERAL: No tracheal deviation Chest: COMMONS NORMALS: normal inspection of the chest CHEST: No tenderness Resp: COMMON NORMALS: clear to auscultation bilaterally EFFORT & INSPECTION: No tachypneic, No respiratory distress, No retractions, No uses ac cessory muscles and No tracheal deviation AUSCULTATION: clear to auscultation bilaterally, no rhonchi, no wheezes and lung sounds not diminished Cardio: COMMON NORMALS: regular rate and regular rhythm RATE: regular rate RHYTHM: regular rhythm HEART SOUNDS: no murmurs PERIPHERAL PULSES: radial pulses present GI: INSPECTION: No abdominal distension AUSCULTATION: No Hyperactive bowel sounds present Neuro: SENSORIUM/ORIENTATION: Yes oriented to person, Yes oriented to place and Yes oriented to time Psych: COMMON NORMALS: mental status grossly normal Skin: NARRATIVE SKIN EXAM: Blisters present to the bilateral plantar feet. On the right, blisters have been unroofed, and dermis is exposed. No evidence of infection. There is some cracking of the skin to the third toe. On the left, a blister is present that has not been unroofed. These are large blisters, and do appear painful. No streaking redness. No significant swelling otherwise. Nails of fifth digits are missing bilaterally. Course Vital Signs: Vital signs: Vital Signs Temperature 97.2 F L 06/08/20 20:46 Pulse Rate 90 06/08/20 21:14 Respiratory Rate 18 06/08/20 20:46 Blood Pressure 123/67 06/08/20 20:46 Pulse Oximetry 98 06/08/20 20:46 MDM - Extremity (Nontraumatic) MDM Narrative: Medical decision making narrative: He is prescribed Silvadene and given medication for pain here. He will be discharged Discharge Plan Discharge Patient Disposition: Home Clinical Impression: Blister of foot without infection Qualifiers: Encounter type: initial encounter Laterality: unspecified laterality Qualified Code(s): S90.829A - Blister (nonthermal), unspecified foot, initial encounter Condition: Stable Prescriptions: No Action IBU 600 mg tablet 600 mg PO TID PRN (Reason: pain) Qty: 20 RF: 0 cephalexin 500 mg capsule 500 mg PO TID 7 Days Qty: 21 RF: 0 Discharge Orders: Discharge ED (Routine); Ordered 06/08/20 Ordered By: Brent Workman Discharge Diet: Usual diet Discharge Activity: Increase activity as tolerated Activity Restrictions/Additional Instructions: Use the cream you were given up to 3 times daily on your blisters. Return for any concerns, especially spreading redness or swelling Coding Level of Care Code ED Wire Winder for Kaitlynn Wallace
[2020-06-08] MEDS: ketorolac 10 mg Tablet PO (21:07)
[2020-06-08] MEDS: HYDROcodone-acetaminophen 5-325 mg Tablet 1 TAB PO (21:08)
[2020-06-08 21:14] VITALS: PULSE 90
[2020-06-08] MEDS: silver sulfadiazine cream 1% 50 gm 1 APPLIC TOPICAL (21:18)
== END 2020-06-08 21:22 | disposition home or self-care (01) ==
PROVIDERS: Emergency Provider Emergency Medicine
DX: S90.829A Blister (nonthermal), unspecified foot, initial encounter (principal); F17.210 Nicotine dependence, cigarettes, uncomplicated; Z59.0 Homelessness; Y93.01 Activity, walking, marching and hiking
CPT/HCPCS: 99283

== ENCOUNTER 2020-07-28 03:15 | Emergency (ER) | payer MEDICAID, SELFPAY ==
[2020-07-28 03:17] VITALS: BP 152/112; PULSE 146; RESP 20; TEMP 36.8; O2SAT 95; BMI 24.3
[2020-07-28] MEDS: LORazepam 2 mg/mL INJ 1 mL IM (04:57)
[2020-07-28] MEDS: ziprasidone 20 mg/mL SDV IM (04:57)
[2020-07-28 05:02] LABS: Add Urine Microscopic? YES; Bilirubin Urine Neg (Negative); Blood Urine 3+ (Negative); Glucose Urine UA Norm (Normal); Ketones Urine Negative (Negative); Leukocyte Esterase Urine Negative (Negative); Nitrate Urine Negative (Negative); Protein Urine Neg (Negative); Specific Gravity, Urine 1.015 (1.005-1.030); Urine Appearance Clear (CLEAR); Urine Color Yellow (Yellow); Urobilinogen Urine Norm (Negative); pH Urine 5 (5-7)
[2020-07-28 05:08] LABS: Add Urine Culture? Yes; Bacteria Urine TRACE /hpf; RBC Urine 50-80 /hpf (0-2); Squamous Epithelial Cell Urine 0-4 /hpf (0-5); WBC Urine 0-4 /hpf (0-5)
[2020-07-28 05:11] LABS: Amphetamines Screen Urine Positive (Negative); Barbiturates Screen Urine Negative (Negative); Benzodiazepines Screen Urine Negative (Negative); Cocaine Screen Urine Negative (Negative); Opiate Screen Urine Negative (Negative); PCP Screen Urine Negative (Negative); THC Screen Urine Negative (Negative)
--- NOTE | 2020-07-28 05:52 | W.ED.GENADLT ---
HPI - General Adult General: Chief complaint: General Medical Stated complaint: took unknown sunstance Time Seen by Provider: 07/28/20 03:50 History of Present Illness: HPI narrative: 54-year-old male well-known to the ER. He presents with agitation and some paranoia after taking an unknown substance at an acquaintance's house. He denies any pain. He denies suicidal or homicidal ideation he states that he is scared, and not safe here . Onset (ago): minute(s) Radiation: non-radiation Quality: other Pain Consistency: other Relieving factors: none Exacerbating factors: none Associated symptoms: Reports nausea; Deny chest pain, dyspnea, headache(s), rash, palpitations or vomiting Review of Systems Const: Denies: fever(s) Eyes: Denies: change in vision ENMT: Denies: odynophagia Card: Denies: chest pain or palpitations Resp: Denies: dyspnea, productive cough, non-productive cough or wheezing GI: Reports: nausea; Denies: abdominal pain or vomiting : Denies: difficulty urinating or hematuria Musc: Denies: neck pain Skin/Breast: Denies: rash or erythema Neuro: Denies: headache(s), dizziness or vertigo Psych: Reports: anxiety; Denies: visual hallucinations, auditory hallucinations, tactile hallucinations, suicidal ideation or homicidal ideation PFS ED PFSH: Medical History (Updated 07/28/20 @ 06:18 by Brent Workman DO) Sebaceous cyst Surgical History H/O circumcision History of back surgery History of foot surgery History of nasal surgery History of neck surgery x2 Family History Other Diabetes Denies family history of Anesthesia complication Bleeding disorder Cancer Social History Smoking and tobacco status: current every day smoker Alcohol intake: never Household members: significant other and other Details: Lives in his car, staying with a girl right now Marital status: Single Current occupational status: unemployed History of recent travel: No Physical Exam Const: EXAM LIMITATIONS: altered mental status ORIENTATION/CONSCIOUSNESS: Yes awake, Yes oriented to person and Yes oriented to place; not oriented to time Chest: COMMONS NORMALS: normal inspection of the chest Resp: COMMON NORMALS: normal respiratory effort, No use of accessory muscles and clear to auscultation bilaterally AUSCULTATION: clear to auscultation bilaterally Cardio: COMMON NORMALS: regular rate and regular rhythm RATE: regular rate RHYTHM: regular rhythm GI: COMMON NORMALS: Normal to inspection, nondistended, normoactive bowel sounds present, Soft to palpation and non-tender PALPATION: Yes Soft to palpation Neuro: SENSORIUM/ORIENTATION: Yes oriented to person, Yes oriented to place and No oriented to time Psych: APPEARANCE: Yes unkempt ATTITUDE: Yes paranoid, Yes evasive and Yes agitated ACTIVITY/MOTOR BEHAVIOR: Yes psychomotor agitation and Yes fidgeting SPEECH: Yes excessive MOOD & AFFECT: Yes irritable THOUGHT PROCESS: Circumstantial thought process present and Tangential thought process present THOUGHT CONTENT: No Suicidality present, No Homicidality present and No Hallucination(s) present ATTENTION/CONCENTRATION: Yes attention grossly intact and Yes concentration grossly impaired MEMORY/COGNITION: Yes memory grossly intact INSIGHT: Limited insight present (Psych) JUDGEMENT: Limited judgement present (Psych) Course Vital Signs: Vital signs: Vital Signs Temperature 98.3 F 07/28/20 03:17 Pulse Rate 116 H 07/28/20 06:02 Respiratory Rate 19 H 07/28/20 06:02 Blood Pressure 146/92 07/28/20 06:02 Pulse Oximetry 95 07/28/20 06:02 MDM - General Adult MDM Narrative: Medical decision making narrative: 54-year-old male who after an ingestion of an unknown substance presents with agitation and some paranoia. This increased during his stay. He was convinced, as he was uncomfortable with his agitation, to allow administration of medication for his anxiety and agitation. He was in no way violent. Medication helped. He is calm and resting now. As he is not suicidal, homicidal, or psychotic at this point, he will be allowed home when he wakes and is at baseline. Lab Data: Labs: Lab Results 07/28/20 07/28/20 Range/Units 04:54 04:54 Urine Color Yellow (Yellow) Urine Appearance Clear (CLEAR) Urine pH 5 (5-7) Ur Specific Gravit y 1.015 (1.005-1.030) Urine Protein Neg (Negative) Urine Glucose (UA) Norm (Normal) Urine Ketones Negative (Negative) Urine Blood 3+ H (Negative) Urine Nitrate Negative (Negative) Urine Bilirubin Neg (Negative) Urine Urobilinogen Norm (Negative) mg/dL Ur Leukocyte Raiza ase Negative (Negative) Urine RBC 50-80 H (0-2) /hpf Urine WBC 0-4 H (0-5) /hpf Ur Squamous Epith Cells 0-4 H (0-5) /hpf Amorphous Sediment Not Reportable Urine Bacteria Trace (NONE) /hpf Urine Opiates Scre en Negative (Negative) ng/mL Ur Barbiturates Sc reen Negative (Negative) ng/mL Ur Phencyclidine S crn Negative (Negative) ng/mL Ur Amphetamines Sc reen Positive H (Negative) ng/mL U Benzodiazepines Scrn Negative (Negative) ng/mL Urine Cocaine Scre en Negative (Negative) ng/mL U Marijuana (THC) Screen Negative (Negative) ng/mL Discharge Plan Discharge Patient Disposition: Home Clinical Impression: Amphetamine adverse reaction Qualifiers: Encounter type: initial encounter Qualified Code(s): T43.625A - Adverse effect of amphetamines, initial encounter Condition: Stable Prescriptions: No Action IBU 600 mg tablet 600 mg PO TID PRN (Reason: pain) Qty: 20 RF: 0 Discharge Orders: Discharge ED (Routine); Ordered 07/28/20 Ordered By: Brent Workman Discharge Diet: Usual diet Discharge Activity: Increase activity as tolerated Patient Instructions: Methamphetamine Abuse (ED), Anxiety (ED) Activity Restrictions/Additional Instructions: Return for any thoughts or wishes to harm your self or anyone else. 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
[2020-07-28 06:02] VITALS: BP 146/92; PULSE 116; RESP 19; O2SAT 95
--- NOTE | 2020-07-28 07:10 | CTR_ITS ---
PROCEDURE INFORMATION: Exam: CT Abdomen And Pelvis Without Contrast Exam date and time: 07/28/2020 7:10 AM Age: 54 years old Clinical indication: Abdominal pain; Additional info: Flank pain TECHNIQUE: Imaging protocol: Computed tomography of the abdomen and pelvis without contrast. Radiation optimization: All CT scans at this facility use at least one of these dose optimization techniques: automated exposure control; mA and/or kV adjustment per patient size (includes targeted exams where dose is matched to clinical indication); or iterative reconstruction. COMPARISON: CT Abdomen/Pelvis Renal [id number] 11/17/2017 4:02 PM RADIATION DOSE METRICS: Total DLP (mGy-cm): 1371.34 FINDINGS: Evaluation is limited by motion artifact and absence of intravenous contrast. Lungs: Poorly defined 9 mm nodular lesion in the anterior segment of the left lower lobe (series 2: Image 15). For both low risk and high risk patients, consider CT Chest at 3 months, PET/CT, or biopsy. (Reference: [email or web address]). Interstitial prominence and dependent bilateral airspace disease. Liver: No focal hepatic mass. Gallbladder and bile ducts: No cholelithiasis or biliary ductal dilatation. Pancreas: No pancreatic mass or ductal dilatation. Spleen: No splenomegaly. Adrenal glands: Unremarkable adrenals. Kidneys and ureters: Nonobstructing bilateral renal calculi, including a 9 mm right renal calculus. Stomach and bowel: Combined small bowel and colonic dilatation without a transition zone. Prominent stool. Appendix: Nonvisualization of the appendix. Intraperitoneal space: No significant free fluid. Vasculature: Prominent vascular calcification. No abdominal aortic aneurysm. Lymph nodes: Subcentimeter lymph nodes. Urinary bladder: Minimal bladder wall thickening. Reproductive: Punctate prostate calcification. Bones/joints: Degenerative change and disc bulging. CT/CT kidney stone [id number] IMPRESSION: 1. Nonobstructing bilateral renal calculi, including a 9 mm right renal calculus. 2. Poorly defined 9 mm nodular lesion in the anterior segment of the left lower lobe (series 2: Image 15). 3. Additional findings as described above. Radiation Dose CTDIVOL = (mGy): DLP = 1371.34 (mGy-cm)
[2020-07-28 07:29] LABS: Basophils # 0.1 10^3/uL (0.0-0.1); Basophils % 0.4 %; Eosinophils # 0.1 10^3/uL (0.0-0.8); Eosinophils % 0.5 %; Hematocrit 39.3 % (42.0-52.0); Hemoglobin 13.1 g/dL (11.7-16.6); Lymphocytes # 0.3 10^3/uL (0.8-4.8); Lymphocytes % 2.6 %; Mean Corpuscular HGB Conc 33.3 g/dL (30.0-36.0); Mean Corpuscular Hemoglobin 30.6 pg (28.0-34.0); Mean Corpuscular Volume 91.8 fL (80-94); Mean Platelet Volume 11.2 fL (7.4-10.4); Monocytes # 0.1 10^3/uL (0.2-0.9); Neutrophils # 11.06 10^3/uL (1.8-7.7); Neutrophils % 94.9 %; Nucleated Red Blood Cells % 0 %; Platelet Count 112 10^3/cmm (130-400); Red Blood Count 4.28 10^6/uL (4.1-5.3); Red Cell Distribution Width 12.9 % (12.1-15.1); White Blood Count 11.7 10^3/uL (4.0-10.0)
[2020-07-28 07:44] LABS: Alanine Aminotransferase 176 U/L (0-41); Albumin Level 3.9 g/dL (3.5-5.2); Alkaline Phosphatase 102 IU/L (40-130); Anion Gap 16.7 (5-19); Aspartate Amino Transferase 339 U/L (0-40); Blood Urea Nitrogen 32 mg/dL (6-20); Calcium 8.8 mg/dL (8.5-10.5); Carbon Dioxide 23 mmol/L (22-29); Chloride 101 mmol/L (98-107); Globulin 2.9 g/dL (1.3-4.6); Glomerular Filtration Rate 42.2 mL/min (90-130); Glucose 110 mg/dL (65-115); Osmolality Calculated 292 mOsm/kg (285-295); Potassium 3.7 mmol/L (3.5-5.1); Sodium 137 mmol/L (136-145); Total Bilirubin 0.6 mg/dL (0.15-1.2); Total Protein 6.8 g/dL (6.6-8.7)
== END 2020-07-28 12:40 | disposition home or self-care (01) ==
PROVIDERS: Emergency Medicine; Emergency Provider Family Medicine
DX: T88.7XXA Unspecified adverse effect of drug or medicament, initial encounter (principal); T43.625A Adverse effect of amphetamines, initial encounter; F17.210 Nicotine dependence, cigarettes, uncomplicated
CPT/HCPCS: 74176; 80053; 80306; 81001; 85025; 87086; 96372; 99284; J2060; J3486